=== PATIENT | male | born 1950 | race Caucasian/White ===

== ENCOUNTER → 2022-08-30 14:33 | Outpatient (BNVA) | payer MEDICARE, SELFPAY | PROVIDERS: PCP Internal Medicine; Visit Provider Nurse Practitioner Family | DX: R91.8 Other nonspecific abnormal finding of lung field (principal); J42 Unspecified chronic bronchitis | CPT/HCPCS: 99202 ==

== ENCOUNTER 2022-08-31 15:02 | Outpatient (REF) | payer MEDICARE, SELFPAY | END 2022-08-31 15:03 | disposition home or self-care (01) | LOC: HO.LNP 15:02 | PROVIDERS: Visit Provider Hospitalist | DX: J42 Unspecified chronic bronchitis (principal) | CPT/HCPCS: 87070; 87116; 87205; 87206 ==

== ENCOUNTER 2022-09-14 11:56 | Outpatient (REF) | payer MEDICARE, SELFPAY | END 2022-09-14 11:57 | disposition home or self-care (01) | LOC: HO.LNP 11:56 | PROVIDERS: Visit Provider Hospitalist | DX: J42 Unspecified chronic bronchitis (principal) | CPT/HCPCS: 87116; 87206 ==

== ENCOUNTER 2022-10-20 08:21 | Outpatient (REF) | payer MEDICARE, SELFPAY ==
--- NOTE | ~2022-10-20 | CT_ITS ---
EXAMINATION: CT CHEST WITHOUT CONTRAST CLINICAL INFORMATION: Follow-up right upper lung opacity COMPARISON: 08/16/2022; abdominal ultrasound 05/04/2022; abdominal MRI 10/03/2021 TECHNIQUE: Multidetector volumetric CT imaging of the chest was done. Axial MIP volume rendering provided. Sagittal and coronal reformatted images were obtained. This CT examination was performed using dose optimization techniques as appropriate, variously including the following: *Automated exposure control *Adjustment of mA and/or kV according to patient size (this includes techniques or standardized protocols for targeted exams where dose is matched to indication/reason for exam; i.e. extremities or head) *Use of iterative reconstruction technique DLP: 259 mGy-cm FINDINGS: ANALYTICAL TECHNICIAN: Poststernotomy changes. LUNGS: The lungs are well expanded. Previously described reticular and groundglass opacity in the right upper lobe has nearly completely cleared. There is mild subpleural reticular and groundglass opacity in the anterolateral apex measuring approximately 12 x 8 mm which is likely inflammatory. There is a stable 3 mm nodule in the superior segment of the right lower lobe (5/206). There is stable reticular chronic atelectasis or scarring at the left lung base. MEDIASTINUM: There is been previous sternotomy and aortic valve replacement. The ascending thoracic aorta is dilated to 4.3 cm, without interval change. Heart is not enlarged. Nonenlarged mediastinal lymph nodes remain stable. CORONARY ARTERY CALCIFICATION: Present. PLEURA: There is no pleural effusion. No pleural mass or thickening. AXILLA: No lymphadenopathy. UPPER ABDOMEN: No acute process. Lobulated appearance of the left adrenal gland appears stable without convincing evidence of a mass. Bilateral renal cysts for which no additional workup is required.. Status post cholecystectomy OSSEOUS STRUCTURES: No fracture or focal destructive lesion. Thoracic spondylosis. CT/CT chest wo IV con IMPRESSION: There is considerable improvement in reticular and groundglass infiltrate in the right upper lobe, consistent with a resolving inflammatory process. There is a small area of reticular and groundglass opacity and subcutaneous pleural right apex, likely inflammatory. Clinical correlation is recommended, with interval follow-up is indicated. Stable chronic atelectasis or scarring at the left lung base. Probably benign 3 mm nodule in the superior segment of the right lower lobe appears stable. Interval follow-up in 12 months could be considered as below. Per the 2017 revised Fleischner Society guidelines, no routine follow-up is necessarily required in low-risk patients, and consideration of 12 month follow-up CT is recommended for patients at high-risk for the development of pulmonary neoplasm.
== END 2022-10-20 08:22 | disposition home or self-care (01) ==
LOC: HO.CT 08:21
PROVIDERS: PCP Internal Medicine; Visit Provider Nurse Practitioner Family
DX: R91.8 Other nonspecific abnormal finding of lung field (principal)
CPT/HCPCS: 71250

== ENCOUNTER 2022-10-24 10:17 | Outpatient (AMB) | payer MEDICARE, SELFPAY ==
[2022-10-24 10:22] VITALS: BP 138/70; PULSE 50; O2SAT 97; BMI 33.5
--- NOTE | 2022-10-24 10:22 | A.OFFVIS_ITS ---
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 Cam Basurto), chronic sinusitis s/p sinus surgery 2012, s/p aortic valve replacement and aorta mesh graft placed 2014, receives annual echos under the care of [facility] cardiology. Referred by PCP initially for chronic bronchitis, as patient with persistent productive cough, unchanged over the past two months despite treatment, CXR negative. He was then sent for chest CT 08/16/22 at [facility] and revealed multiple pulmonary nodules as well as ground glass opacities. Full report below. Patient had continued symptoms, productive cough with thick yellow sputum and was treated with Augmentin, zpak and started on Trelegy this past Sunday. He also uses Flonase as well as saline rinses. He has had noticeable improvements in symptoms. He denies any chest tightness, wheezing or hemoptysis. At baseline patient is quite active and denies any dyspnea. Last PFT 2021, no restrictive or obstructive ventilatory defects. He denies any family history of lung cancer, father, smoker, had COPD.?? 10/24/2022 the patient is here for pulmonary follow-up visit. Overall the patient has been fairly anxious of his respiratory issues. He has been using Advair inhaler with good response. He did not respond well to Trelegy as well as other inhalers afterwards. She would like to stay on the Advair inhaler. Does not seem like the powder bothersome too much but I do believe that the Advair HFA will be a good option for him as able provide good the position of the medication and allows him to use a spacer. We did talk about is issues with chronic bronchitis. The patient is a good candidate for azithromycin 3 times a week in view of the chronic mucus production. The patient is agreeable to this. He just completed a course of doxycycline. In addition to this the patient can use a flutter valve to help him clear the mucus. I will request an Acapella valve from the [employer] to provide that he can use twice a day. He does not have a nebulizer at this point which is okay will consider adding a nebulizer any new future. The nebulizer will also provide additional chest physical therapy. Patient did have a CT scan of the chest that was personally by me. Appears that his nodular densities has significantly improved. He still has some hazy areas of ground-glass I inflammation. But otherwise the nodular densities have decreasing size. He still has small nodular densities present however. Will require additional followups in the future. Patient continues to receive IVIG by his his supervisor [employer]. His last level trough was 800 which is reassuring. Will continue the therapy at this point. He has been fully vaccinated. Will have him come back and 6-8 weeks with PFTs. [facility] Medical History (Updated 10/24/22 @ 22:52 by Valeriano Ruiz MD) Aortic aneurysm Benign neoplasm of pancreas Chronic bronchitis COPD (chronic obstructive pulmonary disease) Former smoker, stopped smoking in distant past History of thyroid cancer Hyperlipemia Hypertension Hypertensive chronic kidney disease Hypogammaglobulinemia Hypothyroidism, acquired Immune thrombocytopenic purpura HOYT (nonalcoholic steatohepatitis) Obesity SNHL (sensorineural hearing loss) Vitamin D deficiency Surgical History (Updated 09/01/22 @ 09:11 by Lisandra Lopez PA-C) History of aortic valve replacement (~2014) History of cholecystectomy (~2009) History of endovascular stent graft for abdominal aortic aneurysm (AAA) (~2014) History of sinus surgery (~2012) History of thyroidectomy, total (~2001) Social History (Updated 08/30/22 @ 15:08 by Charis Alcazar LPN) Patient Tobacco Use Status: Former Tobacco user Tobacco use type: Cigarette and Cigar Years Smoked: 7 Review of Systems Const Denies chills, Denies excessive sweating, Denies fever(s), Denies headache(s) and Denies night sweats Eyes Denies dry eyes, Denies irritation and Denies itchy eyes ENT Reports Normal hearing present, Denies headache(s), Denies nasal congestion and Denies sore throat Card Denies chest pain, Denies chest pain at rest, Denies chest pain with activity, Denies leg edema, Denies dyspnea, Denies dyspnea on exertion, Denies orthopnea and Denies paroxysmal nocturnal dyspnea Resp Denies excessive phlegm production, Denies pain on inspiration, Denies pain with cough, Denies dyspnea, Denies dyspnea on exertion, Denies stridor and Denies wheezing Musc Denies myalgias Neuro Reports Normal hearing present and Denies headache(s) Psych Reports anxiety Endo Denies excessive sweating Samuel/Lymph Denies lymphadenopathy Aller/Immun Denies itchy eyes, Denies seasonal rhinorrhea and Denies wheezing Physical Exam Vital Signs: Last Vital Signs Pulse 50 10/24/22 10:22 BP 138/70 10/24/22 10:22 Pulse Ox 97 10/24/22 10:22 Oxygen Delivery Method Room Air 10/24/22 10:22 BMI result Body Mass Index 33.5 Const General: cooperative, healthy appearing, comfortable, no acute distress, well developed and alert Nutritional Appearance: obese Orientation/consciousness: patient oriented x3 Limitations: no limitations HEENT Head: Yes normal to inspection, Yes normocephalic and Yes atraumatic Ears: hearing grossly normal bilaterally and external ears normal Eyes General: appearance normal, both eyes and all related structures Eyelids: Yes eyelids normal Sclerae: sclerae normal EOM: EOMs intact bilaterally Neck Neck: Yes normal visual inspection and Yes no lymphadenopathy Chest Chest palpation & inspection: normal inspection of the chest Resp Effort & Inspection: normal respiratory effort, able to speak in complete sentences, no audible wheezes, no cough, no stridor, not tachypneic, no tripod positioning and no use of accessory muscles Auscultation: diminished lung sounds Cardio Jugular venous distension: no JVD Rate: regular rate Rhythm: regular rhythm Skin Other: warm, dry General skin exam: no rashes or lesions noted Neuro General: patient oriented x3 Cranial nerves: Yes Normal hearing present Cognition (Neuro): normal cognition Gait exam (Neuro): Normal gait present Extrem General: Yes normal to inspection, Yes capillary refill normal, Yes no clubbing, cyanosis or edema and Yes no pedal edema Psych Appearance: grossly normal and well kempt Speech and movement: Normal speech and movement present and Clear speech present Affect: normal affect Attitude: cooperative Thought process: Normal thought process present Thought content: Normal thought content present Insight: Good insight present (Psych) Judgement: Good judgement present (Psych) Results Reviewed Results Reviewed: [address] [address] [address] Scan Report Signed Patient: Sage Singh MR#: [id number] : 1950 Acct:[id number] Age/Sex: 72 / M ADM Date: 10/20/22 Loc: [facility].CT Attending Dr: Claribel Ruth NP Ordering Physician: Claribel Ruth NP Date of Service: 10/20/22 Procedure(s): CT chest wo IV con Accession Number(s): [id number] cc: Claribel Ruth NP~ EXAMINATION: CT CHEST WITHOUT CONTRAST CLINICAL INFORMATION: Follow-up right upper lung opacity? COMPARISON: 08/16/2022; abdominal ultrasound 05/04/2022; abdominal MRI 10/03/2021 TECHNIQUE: Multidetector volumetric CT imaging of the chest was done. Axial MIP volume rendering provided. Sagittal and coronal reformatted images were obtained.? This CT examination was performed using dose optimization techniques as appropriate, variously including the following: *Automated exposure control *Adjustment of mA and/or kV according to patient size (this includes techniques or standardized protocols for targeted exams where dose is matched to indication/reason for exam; i.e. extremities or head) *Use of iterative reconstruction technique DLP: 259 mGy-cm FINDINGS: PANELBEATER: Poststernotomy changes. LUNGS: The lungs are well expanded. Previously described reticular and groundglass opacity in the right upper lobe has nearly completely cleared. There is mild subpleural reticular and groundglass opacity in the anterolateral apex measuring approximately 12 x 8 mm which is likely inflammatory. There is a stable 3 mm nodule in the superior segment of the right lower lobe (). There is stable reticular chronic atelectasis or scarring at the left lung base.? MEDIASTINUM: There is been previous sternotomy and aortic valve replacement. The ascending thoracic aorta is dilated to 4.3 cm, without interval change. Heart is not enlarged. Nonenlarged mediastinal lymph nodes remain stable.? CORONARY ARTERY CALCIFICATION: Present. PLEURA: There is no pleural effusion. No pleural mass or thickening.? AXILLA: No lymphadenopathy.? UPPER ABDOMEN: No acute process. Lobulated appearance of the left adrenal gland appears stable without convincing evidence of a mass. Bilateral renal cysts for which no additional workup is required.. Status post cholecystectomy? OSSEOUS STRUCTURES: No fracture or focal destructive lesion. Thoracic spondylosis.? CT/CT chest wo IV con IMPRESSION: There is considerable improvement in reticular and groundglass infiltrate in the right upper lobe, consistent with a resolving inflammatory process. ? There is a small area of reticular and groundglass opacity and subcutaneous pleural right apex, likely inflammatory. Clinical correlation is recommended, with interval follow-up is indicated. ? Stable chronic atelectasis or scarring at the left lung base. ? Probably benign 3 mm nodule in the superior segment of the right lower lobe appears stable. Interval follow-up in 12 months could be considered as below.? ? Per the 2017 revised Fleischner Society guidelines, no routine follow-up is necessarily required in low-risk patients, and consideration of 12 month follow-up CT is recommended for patients at high-risk for the development of pulmonary neoplasm. Dictated By: Indio Molina MD Signed By: <Electronically signed by Indio Molina MD in OV> 10/23/22 0932 DD/ 0900 TD/TT:? Outdoor Power Equipment Mechanic: Assessment & Plan Assessment & Plan (1) COPD (chronic obstructive pulmonary disease): Code(s): J44.9 - Chronic obstructive pulmonary disease, unspecified (2) Ground glass opacity present on imaging of lung: Code(s): R91.8 - Other nonspecific abnormal finding of lung field (3) Chronic bronchitis: Code(s): J42 - Unspecified chronic bronchitis (4) Hypogammaglobulinemia: Comment: (on IVIG -Dr. Cam Basurto) Code(s): D80.1 - Nonfamilial hypogammaglobulinemia Plan start Advair HFA with spacer Requesting Acapella valve from [facility] as needed consider nebulizer Start Azithromycin MWF, will need an EKG PFTs IVIG at [facility] F/U 6-8 weeks Orders: Orders PFT pulmonary function test Today J44.9 - Chronic obstructive pulmonary disease, unspecified Medications: New fluticasone propion-salmeterol 115-21 mcg/actuation (Advair HFA) 2 puffs inhalation Q12H 30 days 12 grams 11RF azithromycin Take 1 tablet on Sunday/Sunday/Sunday 250 mg PO 3XW 28 days 12 tabs 2RF K21.9 - Gastro-esophageal reflux disease without esophagitis Coding Level of Care Code Est Pt Level 5 (52338) Diagnoses COPD (chronic obstructive pulmonary disease) J44.9 Ground glass opacity present on imaging of lung R91.8 Chronic bronchitis J42 Hypogammaglobulinemia D80.1 Time Spent (min) 60
== END 2022-10-24 11:09 | disposition home or self-care (01) ==
PROVIDERS: PCP Internal Medicine; Visit Provider Hospitalist
DX: J44.9 Chronic obstructive pulmonary disease, unspecified (principal); R91.8 Other nonspecific abnormal finding of lung field; D80.1 Nonfamilial hypogammaglobulinemia
CPT/HCPCS: 99215

== ENCOUNTER → 2022-10-24 10:17 | Outpatient (BNVA) | payer MEDICARE, SELFPAY | PROVIDERS: PCP Internal Medicine; Visit Provider Hospitalist | DX: J44.9 Chronic obstructive pulmonary disease, unspecified (principal); R91.8 Other nonspecific abnormal finding of lung field; D80.1 Nonfamilial hypogammaglobulinemia | CPT/HCPCS: 99212 ==

== ENCOUNTER 2022-11-17 10:56 | Outpatient (REF) | payer MEDICARE, SELFPAY ==
--- NOTE | 2022-11-17 11:54 | PFT_ITS ---
FLOWS: 1. FEV1 119% of predicted at 3.67 L. 2. FVC 107% of predicted at 4.55 L. 3. FEV1 to FVC ratio of 0.81. 4. No bronchodilator response. LUNG VOLUMES: 1. Total lung capacity 101% of predicted at 7.11 L. 2. Residual volume of 97% of predicted at 2.48 L. 3. Slow vital capacity 103% of predicted at 4.63 L. 4. Expiratory reserve volume 43% at 0.54 L. 5. Diffusion capacity is normal. IMPRESSION: No obstructive or restrictive ventilatory defect. No bronchodilator response. Decreased expiratory reserve volume suggests extrathoracic restriction likely secondary to abdominal obesity. Roberto Carlos Wilson MD AP/MODL / [id number]
[2022-11-17 12:25] LABS: MANUAL DIFF FLAG NO
[2022-11-17 13:25] LABS: Basophils Absolute Auto 0.1 X10*3/uL (0.0-0.2); Basophils Percent Auto 1.1 % (0-2); Eosinophils Absolute Auto 0.1 X10*3/uL (0.0-0.4); Eosinophils Percent Auto 1.5 % (0-4); Hematocrit 44.4 % (42.0-52.0); Hemoglobin 14.3 g/dl (14.0-18.0); Imm Gran Abs Auto 0.03 X10*3/uL (0.00-0.03); Imm Gran Pct Auto 0.3 % (0.0-0.4); Lymphocytes Absolute Auto 1.7 X10*3/uL (1.2-4.9); Lymphocytes Percent Auto 18.5 % (20-40); Mean Corpuscular HGB Conc 32.2 g/dl (31.0-36.0); Mean Corpuscular Hemoglobin 28.6 pg (27.0-33.0); Mean Corpuscular Volume 88.8 fL (80.0-98.0); Mean Platelet Volume 9.8 fL (9.4-12.4); Monocytes Absolute Auto 0.8 X10*3/uL (0.1-1.2); Monocytes Percent Auto 9.1 % (2-11); Neutrophils Absolute Auto 6.3 x10*3/uL (2.0-8.3); Neutrophils Percent Auto 69.5 % (45-73); Platelet Count 325 X10*3/uL (160-400); Red Cell Distribution Width 14.4 % (11.0-16.0)
[2022-11-17 14:12] LABS: Anion Gap 14 (12-20); Blood Urea Nitrogen 18 mg/dL (9-16); Calcium 10.2 mg/dL (8.4-10.2); Carbon Dioxide 24 mmol/L (22-29); Chloride 107 mmol/L (96-108); Estimated Glomerular Filt Rate > 60; Glucose Random 93 mg/dL (60-115); Potassium 4.6 mmol/L (3.3-5.1); Sodium 140 mmol/L (135-145)
[2022-11-17 14:16] LABS: Erythrocyte Sedimentation Rate 10 MM/HR (0-15)
[2022-11-21 09:19] LABS: Anti Nuclear Antibody Screen NEGATIVE (NEGATIVE)
[2022-11-24 07:23] LABS: IgA <5 mg/dL (70-320); IgG 919 mg/dL (600-1540); IgM <5 mg/dL (50-300)
[2022-11-24 16:43] LABS: Asperg fumigatus Precip Abs NEGATIVE (NEGATIVE); Micropoly faeni Abs NEGATIVE (NEGATIVE); Pigeon serum Abs NEGATIVE (NEGATIVE); Saccharo pora viridis Abs NEGATIVE (NEGATIVE); Thermo candidus Abs NEGATIVE (NEGATIVE); Thermoa vulgaris #1 NEGATIVE (NEGATIVE)
== END 2022-11-17 10:57 | disposition home or self-care (01) ==
LOC: HO.RESP 10:56
PROVIDERS: PCP Internal Medicine; Visit Provider Hospitalist
DX: D80.1 Nonfamilial hypogammaglobulinemia (principal); J42 Unspecified chronic bronchitis; R91.8 Other nonspecific abnormal finding of lung field; T78.40XA Allergy, unspecified, initial encounter
CPT/HCPCS: 36415; 80048; 82784; 82785; 85025; 85652; 86003; 86038; 86331; 86606; 86609; 94010; 94727; 94729

== ENCOUNTER → 2022-11-17 11:54 | Outpatient (BNV) | payer MEDICARE, SELFPAY | PROVIDERS: PCP Internal Medicine; Visit Provider Internal Medicine Pulmonary Disease | DX: J44.9 Chronic obstructive pulmonary disease, unspecified (principal) | CPT/HCPCS: 94060; 94727; 94729 ==

== ENCOUNTER 2022-12-15 10:18 | Outpatient (AMB) | payer MEDICARE, SELFPAY ==
--- NOTE | 2022-12-15 10:33 | MHC.OFFVIS ---
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 Cam Basurto), chronic sinusitis s/p sinus surgery 2012, s/p aortic valve replacement and aorta mesh graft placed 2014, receives annual echos under the care of [facility] cardiology. Referred by PCP initially for chronic bronchitis, as patient with persistent productive cough, unchanged over the past two months despite treatment, CXR negative. He was then sent for chest CT 08/16/22 at [facility] and revealed multiple pulmonary nodules as well as ground glass opacities. Full report below. Patient had continued symptoms, productive cough with thick yellow sputum and was treated with Augmentin, zpak and started on Trelegy this past Sunday. He also uses Flonase as well as saline rinses. He has had noticeable improvements in symptoms. He denies any chest tightness, wheezing or hemoptysis. At baseline patient is quite active and denies any dyspnea. Last PFT 2021, no restrictive or obstructive ventilatory defects. He denies any family history of lung cancer, father, smoker, had COPD.?? 10/24/2022 the patient is here for pulmonary follow-up visit. Overall the patient has been fairly anxious of his respiratory issues. He has been using Advair inhaler with good response. He did not respond well to Trelegy as well as other inhalers afterwards. She would like to stay on the Advair inhaler. Does not seem like the powder bothersome too much but I do believe that the Advair HFA will be a good option for him as able provide good the position of the medication and allows him to use a spacer. We did talk about is issues with chronic bronchitis. The patient is a good candidate for azithromycin 3 times a week in view of the chronic mucus production. The patient is agreeable to this. He just completed a course of doxycycline. In addition to this the patient can use a flutter valve to help him clear the mucus. I will request an Acapella valve from the [employer] to provide that he can use twice a day. He does not have a nebulizer at this point which is okay will consider adding a nebulizer any new future. The nebulizer will also provide additional chest physical therapy. Patient did have a CT scan of the chest that was personally by me. Appears that his nodular densities has significantly improved. He still has some hazy areas of ground-glass I inflammation. But otherwise the nodular densities have decreasing size. He still has small nodular densities present however. Will require additional followups in the future. Patient continues to receive IVIG by his his tractor operator helper. His last level trough was 800 which is reassuring. Will continue the therapy at this point. He has been fully vaccinated. Will have him come back and 6-8 weeks with PFTs. 12/15/2022 the patient is here for pulmonary follow-up visit. Continues to have significant chest congestion. Moderate severity. The Advair inhaler does not seem to be as effective as the Wixela. He is going to go back to the Wixela at this time. The patient does have significant chest congestion. Will go ahead and provide with a nebulizer in order for him to use it twice a day with Xopenex. Also will request a Acapella valve from the [facility] in order for him to perform chest physical therapy and bronchopulmonary hygiene. Sputum culture once able. The patient will continue with the azithromycin for now. 3 times a week. Hopefully with the nebulizer therapy he notices improvement. We did review again his CT scan of the chest from September 2022 demonstrating areas of ground-glass opacities and also pulmonary nodules. If the patient continues to improve will follow-up with a CT scan in September of 2023. otherwise we can always consider reimaging at an earlier time if he does not make any improvements. 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 Hypogammaglobulinemia Vitamin D deficiency Obesity Hyperlipemia Hypertension Hypothyroidism, acquired History of thyroid cancer Chronic bronchitis Surgical History (Updated 09/01/22 @ 09:11 by Lisandra Lopez PA-C) History of sinus surgery (~2012) History of cholecystectomy (~2009) History of thyroidectomy, total (~2001) History of endovascular stent graft for abdominal aortic aneurysm (AAA) (~2014) History of aortic valve replacement (~2014) Social History (Updated 08/30/22 @ 15:08 by Charis Alcazar LPN) Patient Tobacco Use Status: Former Tobacco user Tobacco use type: Cigarette and Cigar Years Smoked: 7 Review of Systems Const Denies chills, Denies excessive sweating, Denies fever(s), Denies headache(s) and Denies night sweats Eyes Denies dry eyes, Denies irritation and Denies itchy eyes ENT Reports Normal hearing present, Denies headache(s), Denies nasal congestion and Denies sore throat Card Denies chest pain, Denies chest pain at rest, Denies chest pain with activity, Denies leg edema, Denies dyspnea, Denies dyspnea on exertion, Denies orthopnea and Denies paroxysmal nocturnal dyspnea Resp Denies excessive phlegm production, Denies pain on inspiration, Denies pain with cough, Denies dyspnea, Denies dyspnea on exertion, Denies stridor and Denies wheezing Musc Denies myalgias Neuro Reports Normal hearing present and Denies headache(s) Psych Reports anxiety Endo Denies excessive sweating Samuel/Lymph Denies lymphadenopathy Aller/Immun Denies itchy eyes, Denies seasonal rhinorrhea and Denies wheezing Physical Exam Vital Signs: Last Vital Signs Pulse 62 12/15/22 10:34 BP 128/72 12/15/22 10:34 Pulse Ox 97 12/15/22 10:34 Oxygen Delivery Method Room Air 12/15/22 10:34 BMI result Body Mass Index 33.2 Const General: cooperative, healthy appearing, comfortable, no acute distress, well developed and alert Nutritional Appearance: obese Orientation/consciousness: patient oriented x3 Limitations: no limitations HEENT Head: Yes normal to inspection, Yes normocephalic and Yes atraumatic Ears: hearing grossly normal bilaterally and external ears normal Eyes General: appearance normal, both eyes and all related structures Eyelids: Yes eyelids normal Sclerae: sclerae normal EOM: EOMs intact bilaterally Neck Neck: Yes normal visual inspection and Yes no lymphadenopathy Chest Chest palpation & inspection: normal inspection of the chest Resp Effort & Inspection: normal respiratory effort, able to speak in complete sentences, no audible wheezes, no cough, no stridor, not tachypneic, no tripod positioning and no use of accessory muscles Auscultation: diminished lung sounds Cardio Jugular venous distension: no JVD Rate: regular rate Rhythm: regular rhythm Skin Other: warm, dry General skin exam: no rashes or lesions noted Neuro General: patient oriented x3 Cranial nerves: Yes Normal hearing present Cognition (Neuro): normal cognition Gait exam (Neuro): Normal gait present Extrem General: Yes normal to inspection, Yes capillary refill normal, Yes no clubbing, cyanosis or edema and Yes no pedal edema Psych Appearance: grossly normal and well kempt Speech and movement: Normal speech and movement present and Clear speech present Affect: normal affect Attitude: cooperative Thought process: Normal thought process present Thought content: Normal thought content present Insight: Good insight present (Psych) Judgement: Good judgement present (Psych) Assessment & Plan Assessment & Plan (1) COPD (chronic obstructive pulmonary disease): Code(s): J44.9 - Chronic obstructive pulmonary disease, unspecified Qualifiers: COPD type: chronic bronchitis Chronic bronchitis type: mixed simple and mucopurulent Qualified Code(s): J41.8 - Mixed simple and mucopurulent chronic bronchitis (2) Ground glass opacity present on imaging of lung: Code(s): R91.8 - Other nonspecific abnormal finding of lung field (3) Chronic bronchitis: Code(s): J42 - Unspecified chronic bronchitis Qualifiers: Chronic bronchitis type: mixed simple and mucopurulent Qualified Code(s): J41.8 - Mixed simple and mucopurulent chronic bronchitis (4) Hypogammaglobulinemia: Comment: (on IVIG -Dr. Cam Basurto) Code(s): D80.1 - Nonfamilial hypogammaglobulinemia Plan hold Advair HFA with spacer restart Wixela, consider higher dose Requesting Acapella valve from [facility] as needed start nebulizer BID with xopenex restart Azithromycin MWF, will need an EKG barium swallow sputum cx CT chest 10/19 IVIG at [facility] F/U 6-8 weeks Orders: Orders [place] barium swallow 12/15/22 K21.9 - Gastro-esophageal reflux disease without esophagitis Sputum Cult + Gram stain 12/15/22 J44.9 - Chronic obstructive pulmonary disease, unspecified Medications: New levalbuterol HCl 1.25 mg (3 mL) inhalation BID 30 days 180 mL 0RF J44.9 - Chronic obstructive pulmonary disease, unspecified Coding Level of Care Code Tele Est Pt Level 4 (99263) Diagnoses Mixed simple and mucopurulent chronic bronchitis J41.8 COPD type: chronic bronchitis Chronic bronchitis type: mixed simple and mucopurulent Ground glass opacity present on imaging of lung R91.8 Mixed simple and mucopurulent chronic bronchitis J41.8 Chronic bronchitis type: mixed simple and mucopurulent Hypogammaglobulinemia D80.1 Time Spent (min) 17
[2022-12-15 10:34] VITALS: BP 128/72; PULSE 62; O2SAT 97; BMI 33.2
== END 2022-12-15 11:16 | disposition home or self-care (01) ==
PROVIDERS: PCP Internal Medicine; Visit Provider Hospitalist
DX: J41.8 Mixed simple and mucopurulent chronic bronchitis (principal); D80.1 Nonfamilial hypogammaglobulinemia; R91.8 Other nonspecific abnormal finding of lung field
CPT/HCPCS: 99214

== ENCOUNTER → 2022-12-15 10:18 | Outpatient (BNVA) | payer MEDICARE, SELFPAY | PROVIDERS: PCP Internal Medicine; Visit Provider Hospitalist | DX: J41.8 Mixed simple and mucopurulent chronic bronchitis (principal); R91.8 Other nonspecific abnormal finding of lung field; D80.1 Nonfamilial hypogammaglobulinemia; Z87.891 Personal history of nicotine dependence | CPT/HCPCS: 99212 ==

== ENCOUNTER 2022-12-18 11:09 | Outpatient (REF) | payer MEDICARE, SELFPAY | END 2022-12-18 11:10 | disposition home or self-care (01) | LOC: HO.LNP 11:09 | PROVIDERS: Visit Provider Hospitalist | DX: J44.9 Chronic obstructive pulmonary disease, unspecified (principal) | CPT/HCPCS: 87070; 87077; 87185; 87205 ==

== ENCOUNTER → 2023-03-08 12:03 | Outpatient (REF) | payer BC, SELFPAY ==
--- NOTE | 2023-03-08 12:11 | ECG_ITS ---
Test Reason : j41.8 Blood Pressure : / mmHG Vent. Rate : 050 BPM Atrial Rate : 050 BPM P-R Int : 234 ms QRS Dur : 114 ms QT Int : 422 ms P-R-T Axes : 003 -37 027 degrees QTc Int : 384 ms Sinus bradycardia with sinus arrhythmia with 1st degree A-V block Possible Left atrial enlargement Left axis deviation Left ventricular hypertrophy ( R in aVL , Murray product , Romhilt-High ) Abnormal ECG No previous ECGs available Referred By: Valeriano Ruiz Electronically Signed By:CARY CLIFFORD MD
== END ==
LOC: HO.CARD 12:03
PROVIDERS: PCP Internal Medicine; Visit Provider Hospitalist
DX: J41.8 Mixed simple and mucopurulent chronic bronchitis (principal); K21.9 Gastro-esophageal reflux disease without esophagitis
CPT/HCPCS: 93005

== ENCOUNTER → 2023-03-08 12:11 | Outpatient (BNV) | payer BC, SELFPAY | PROVIDERS: PCP Internal Medicine; Visit Provider Internal Medicine Cardiovascular Disease | DX: I44.0 Atrioventricular block, first degree (principal); R94.31 Abnormal electrocardiogram [ECG] [EKG] | CPT/HCPCS: 93010 ==

== ENCOUNTER 2023-04-18 09:42 | Outpatient (AMB) | payer BC, SELFPAY ==
[2023-04-18 09:50] VITALS: BP 128/70; PULSE 55; O2SAT 98; BMI 33.2
--- NOTE | 2023-04-18 09:50 | MHC.OFFVIS ---
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 Cam Basurto), chronic sinusitis s/p sinus surgery 2012, s/p aortic valve replacement and aorta mesh graft placed 2014, receives annual echos under the care of [facility] cardiology. Referred by PCP initially for chronic bronchitis, as patient with persistent productive cough, unchanged over the past two months despite treatment, CXR negative. He was then sent for chest CT 08/16/22 at [facility] and revealed multiple pulmonary nodules as well as ground glass opacities. Full report below. Patient had continued symptoms, productive cough with thick yellow sputum and was treated with Augmentin, zpak and started on Trelegy this past Sunday. He also uses Flonase as well as saline rinses. He has had noticeable improvements in symptoms. He denies any chest tightness, wheezing or hemoptysis. At baseline patient is quite active and denies any dyspnea. Last PFT 2021, no restrictive or obstructive ventilatory defects. He denies any family history of lung cancer, father, smoker, had COPD.?? 10/24/2022 the patient is here for pulmonary follow-up visit. Overall the patient has been fairly anxious of his respiratory issues. He has been using Advair inhaler with good response. He did not respond well to Trelegy as well as other inhalers afterwards. She would like to stay on the Advair inhaler. Does not seem like the powder bothersome too much but I do believe that the Advair HFA will be a good option for him as able provide good the position of the medication and allows him to use a spacer. We did talk about is issues with chronic bronchitis. The patient is a good candidate for azithromycin 3 times a week in view of the chronic mucus production. The patient is agreeable to this. He just completed a course of doxycycline. In addition to this the patient can use a flutter valve to help him clear the mucus. I will request an Acapella valve from the [facility] to provide that he can use twice a day. He does not have a nebulizer at this point which is okay will consider adding a nebulizer any new future. The nebulizer will also provide additional chest physical therapy. Patient did have a CT scan of the chest that was personally by me. Appears that his nodular densities has significantly improved. He still has some hazy areas of ground-glass I inflammation. But otherwise the nodular densities have decreasing size. He still has small nodular densities present however. Will require additional followups in the future. Patient continues to receive IVIG by his his news library director. His last level trough was 800 which is reassuring. Will continue the therapy at this point. He has been fully vaccinated. Will have him come back and 6-8 weeks with PFTs. 12/15/2022 the patient is here for pulmonary follow-up visit. Continues to have significant chest congestion. Moderate severity. The Advair inhaler does not seem to be as effective as the Wixela. He is going to go back to the Wixela at this time. The patient does have significant chest congestion. Will go ahead and provide with a nebulizer in order for him to use it twice a day with Xopenex. Also will request a Acapella valve from the [employer] in order for him to perform chest physical therapy and bronchopulmonary hygiene. Sputum culture once able. The patient will continue with the azithromycin for now. 3 times a week. Hopefully with the nebulizer therapy he notices improvement. We did review again his CT scan of the chest from September 2022 demonstrating areas of ground-glass opacities and also pulmonary nodules. If the patient continues to improve will follow-up with a CT scan in September of 2023. otherwise we can always consider reimaging at an earlier time if he does not make any improvements. 04/18/2023 The patient is here for a pulmonary follow up visit. He is doing better. Still has acongested cough, moderate in severity. He was able to produce a sample and sent for culture. Still on the IgG therapy, although IgA deficiency. Always a concern about severe allergic reactions. He does get the IVIG through [facility]. He did f/u with immunology. Bloodwork demonstrating minimal B cell activity. He will undergo genetic testing as per the patient. He continues to have significant nasal congestions and has continue the Afrin. He understands that it is not good for im to use it regularly due to the rebound nasal congestion. He will try to decrease the amount and tria ipratropium. He did have a CT chest back in 2022 with subcentemeter pulmonary nodules. We will follow up in the summer after his repeat CT chest. 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 Hypogammaglobulinemia Vitamin D deficiency Obesity Hyperlipemia Hypertension Hypothyroidism, acquired History of thyroid cancer Chronic bronchitis Surgical History (Updated 09/01/22 @ 09:11 by Lisandra Lpoez PA-C) History of sinus surgery (~2012) History of cholecystectomy (~2009) History of thyroidectomy, total (~2001) History of endovascular stent graft for abdominal aortic aneurysm (AAA) (~2014) History of aortic valve replacement (~2014) Social History (Updated 08/30/22 @ 15:08 by Charis Alcazar LPN) Patient Tobacco Use Status: Former Tobacco user Tobacco use type: Cigarette and Cigar Years Smoked: 7 Review of Systems Const Denies chills, Denies excessive sweating, Denies fever(s), Denies headache(s) and Denies night sweats Eyes Denies dry eyes, Denies irritation and Denies itchy eyes ENT Reports Normal hearing present, Denies headache(s), Denies nasal congestion and Denies sore throat Card Denies chest pain, Denies chest pain at rest, Denies chest pain with activity, Denies leg edema, Denies dyspnea, Denies orthopnea and Denies paroxysmal nocturnal dyspnea Resp Reports change in phlegm color, Reports chest congestion, Reports cough, Denies pain on inspiration, Denies pain with cough, Denies dyspnea, Denies stridor and Denies wheezing Musc Denies myalgias Neuro Reports Normal hearing present and Denies headache(s) Psych Reports anxiety Endo Denies excessive sweating Samuel/Lymph Denies lymphadenopathy Aller/Immun Denies itchy eyes, Denies seasonal rhinorrhea and Denies wheezing Physical Exam Vital Signs: Last Vital Signs Pulse 55 04/18/23 09:50 BP 128/70 04/18/23 09:50 Pulse Ox 98 04/18/23 09:50 Oxygen Delivery Method Room Air 04/18/23 09:50 BMI result Body Mass Index 33.2 Const General: cooperative, healthy appearing, comfortable, no acute distress, well developed and alert Nutritional Appearance: obese Orientation/consciousness: patient oriented x3 Limitations: no limitations HEENT Head: Yes normal to inspection, Yes normocephalic and Yes atraumatic Ears: hearing grossly normal bilaterally and external ears normal Eyes General: appearance normal, both eyes and all related structures Eyelids: Yes eyelids normal Sclerae: sclerae normal EOM: EOMs intact bilaterally Neck Neck: Yes normal visual inspection and Yes no lymphadenopathy Chest Chest palpation & inspection: normal inspection of the chest Resp Effort & Inspection: normal respiratory effort, able to speak in complete sentences, no audible wheezes, no cough, no stridor, not tachypneic, no tripod positioning and no use of accessory muscles Auscultation: diminished lung sounds Cardio Jugular venous distension: no JVD Rate: regular rate Rhythm: regular rhythm Skin Other: warm, dry General skin exam: no rashes or lesions noted Neuro General: patient oriented x3 Cranial nerves: Yes Normal hearing present Cognition (Neuro): normal cognition Gait exam (Neuro): Normal gait present Extrem General: Yes normal to inspection, Yes capillary refill normal, Yes no clubbing, cyanosis or edema and Yes no pedal edema Psych Appearance: grossly normal and well kempt Speech and movement: Normal speech and movement present and Clear speech present Affect: normal affect Attitude: cooperative Thought process: Normal thought process present Thought content: Normal thought content present Insight: Good insight present (Psych) Judgement: Good judgement present (Psych) Assessment & Plan Assessment & Plan (1) COPD (chronic obstructive pulmonary disease): Code(s): J44.9 - Chronic obstructive pulmonary disease, unspecified Qualifiers: COPD type: chronic bronchitis Chronic bronchitis type: mixed simple and mucopurulent Qualified Code(s): J41.8 - Mixed simple and mucopurulent chronic bronchitis (2) Ground glass opacity present on imaging of lung: Code(s): R91.8 - Other nonspecific abnormal finding of lung field (3) Chronic bronchitis: Code(s): J42 - Unspecified chronic bronchitis Qualifiers: Chronic bronchitis type: mixed simple and mucopurulent Qualified Code(s): J41.8 - Mixed simple and mucopurulent chronic bronchitis (4) Hypogammaglobulinemia: Comment: (on IVIG -Dr. Cam Basurto) Code(s): D80.1 - Nonfamilial hypogammaglobulinemia (5) Multiple pulmonary nodules: Code(s): R91.8 - Other nonspecific abnormal finding of lung field (6) IgM deficiency: Code(s): D80.4 - Selective deficiency of immunoglobulin M [IgM] (7) IgA deficiency: Code(s): D80.2 - Selective deficiency of immunoglobulin A [IgA] Plan continue Wixela, consider higher dose Acapella valve from [facility] as needed nebulizer BID with xopenex conitnue Azithromycin MWF, EKG ok start ipratropium nasal spray Needs to cut down and stop the Afrin sputum cx sent CT chest 09/18 IVIG at [facility] F/U August 2023 Orders: Orders CT chest wo IV con 08/30/23 R91.8 - Other nonspecific abnormal finding of lung field, Z85.850 - Personal history of malignant neoplasm of thyroid Sputum Cult + Gram stain Today D80.1 - Nonfamilial hypogammaglobulinemia Medications: New ipratropium bromide administer into each nostril 2 sprays intranasal TID PRN 15 mL 6RF allergy symptoms Changed From azithromycin 250 mg PO 3XW 12 tabs 0RF K21.9 - Gastro-esophageal reflux disease without esophagitis To azithromycin Sunday, Sunday, Sunday 250 mg PO 3XW 12 tabs 11RF K21.9 - Gastro-esophageal reflux disease without esophagitis Coding Level of Care Code Est Pt Level 4 (58649) Diagnoses Mixed simple and mucopurulent chronic bronchitis J41.8 COPD type: chronic bronchitis Chronic bronchitis type: mixed simple and mucopurulent Ground glass opacity present on imaging of lung R91.8 Mixed simple and mucopurulent chronic bronchitis J41.8 Chronic bronchitis type: mixed simple and mucopurulent Hypogammaglobulinemia D80.1 Multiple pulmonary nodules R91.8 IgM deficiency D80.4 IgA deficiency D80.2 Time Spent (min) 18
== END 2023-04-18 10:20 | disposition home or self-care (01) ==
PROVIDERS: PCP Internal Medicine; Visit Provider Hospitalist
DX: J41.8 Mixed simple and mucopurulent chronic bronchitis (principal); R91.8 Other nonspecific abnormal finding of lung field; D80.1 Nonfamilial hypogammaglobulinemia; D80.4 Selective deficiency of immunoglobulin M [IgM]; D80.2 Selective deficiency of immunoglobulin A [IgA]
CPT/HCPCS: 99214

== ENCOUNTER 2023-04-18 09:42 | Outpatient (REF) | payer BC, SELFPAY | END 2023-04-18 09:43 | disposition home or self-care (01) | LOC: HO.LNP 09:42 | PROVIDERS: PCP Internal Medicine; Visit Provider Hospitalist | DX: J41.8 Mixed simple and mucopurulent chronic bronchitis (principal); R91.8 Other nonspecific abnormal finding of lung field; D80.1 Nonfamilial hypogammaglobulinemia; D80.2 Selective deficiency of immunoglobulin A [IgA] | CPT/HCPCS: 87070; 87077; 87185; 87205 ==

== ENCOUNTER 2023-08-20 09:49 | Outpatient (REF) | payer BC, SELFPAY ==
--- NOTE | ~2023-08-20 | CT_ITS ---
EXAMINATION: CT CHEST WITHOUT CONTRAST CLINICAL INFORMATION: Multiple pulmonary nodules, ground-glass opacity is present on imaging of lungs, history of thyroid cancer. COMPARISON: CT chest 10/20/2022: Previously described reticular and ground-glass opacity in the right upper lobe, has nearly completely cleared. There is mild subpleural reticular and ground-glass opacity in the anterolateral apex measuring approximately 12 x 8 mm, which is likely inflammatory. TECHNIQUE: Multidetector volumetric CT imaging of the chest was done. Axial MIP volume rendering provided. Sagittal and coronal reformatted images were obtained. This CT examination was performed using dose optimization techniques as appropriate, variously including the following: *Automated exposure control *Adjustment of mA and/or kV according to patient size (this includes techniques or standardized protocols for targeted exams where dose is matched to indication/reason for exam; i.e. extremities or head) *Use of iterative reconstruction technique DLP: 256 mGy-cm. FINDINGS: LUNGS: Previously seen subpleural reticular and ground-glass opacity in the anterolateral right apex (prior 5:99) has resolved. There is a new 1 cm ground-glass opacity seen in the right upper lobe (5:163), likely inflammatory. Scattered calcified granulomas are present. No concerning solid lung nodule is seen. MEDIASTINUM: Patient is status post median sternotomy. An aortic valvular prosthesis is present. Heart size is normal. CORONARY ARTERY CALCIFICATION: Moderate. PLEURA: There is no pleural effusion. No pleural mass or thickening. AXILLA: No lymphadenopathy. UPPER ABDOMEN: Status post cholecystectomy. Multiple benign right-sided Bosniak class I renal cysts are noted, which require no additional imaging or follow-up. No solid renal masses are seen. OSSEOUS STRUCTURES: Degenerative changes are present in the spine. No bony destructive lesions. CT/CT chest wo IV con IMPRESSION: 1. Previously seen subpleural reticular and ground-glass opacity in the right apex have resolved. 2. There is a new 1 cm ground-glass opacity in the right upper lobe, likely inflammatory. 3. Incidental note is made of an aortic valvular prosthesis, cholecystectomy and benign Bosniak class I renal cysts, which require no additional imaging or follow-up. According to the UPDATED 2017 Fleischner Society recommendations, the advised follow-up imaging for a single pure ground-glass nodule measuring between 6 and 10 mm is: CT at 6 to 12 months to confirm persistence, then CT every 2 years until 5 years if it persists.
== END 2023-08-20 09:50 | disposition home or self-care (01) ==
LOC: HO.CT 09:49
PROVIDERS: PCP Internal Medicine; Visit Provider Hospitalist
DX: R91.8 Other nonspecific abnormal finding of lung field (principal); Z85.850 Personal history of malignant neoplasm of thyroid
CPT/HCPCS: 71250

== ENCOUNTER 2023-09-28 09:47 | Outpatient (AMB) | payer BC, SELFPAY ==
[2023-09-28 09:55] VITALS: PULSE 64; O2SAT 97; BMI 31.3
--- NOTE | 2023-09-28 09:55 | MHC.OFFVIS ---
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 Cam Basurto), chronic sinusitis s/p sinus surgery 2012, s/p aortic valve replacement and aorta mesh graft placed 2014, receives annual echos under the care of [facility] cardiology. Referred by PCP initially for chronic bronchitis, as patient with persistent productive cough, unchanged over the past two months despite treatment, CXR negative. He was then sent for chest CT 08/16/22 at [facility] and revealed multiple pulmonary nodules as well as ground glass opacities. Full report below. Patient had continued symptoms, productive cough with thick yellow sputum and was treated with Augmentin, zpak and started on Trelegy this past Sunday. He also uses Flonase as well as saline rinses. He has had noticeable improvements in symptoms. He denies any chest tightness, wheezing or hemoptysis. At baseline patient is quite active and denies any dyspnea. Last PFT 2021, no restrictive or obstructive ventilatory defects. He denies any family history of lung cancer, father, smoker, had COPD.?? 10/24/2022 the patient is here for pulmonary follow-up visit. Overall the patient has been fairly anxious of his respiratory issues. He has been using Advair inhaler with good response. He did not respond well to Trelegy as well as other inhalers afterwards. She would like to stay on the Advair inhaler. Does not seem like the powder bothersome too much but I do believe that the Advair HFA will be a good option for him as able provide good the position of the medication and allows him to use a spacer. We did talk about is issues with chronic bronchitis. The patient is a good candidate for azithromycin 3 times a week in view of the chronic mucus production. The patient is agreeable to this. He just completed a course of doxycycline. In addition to this the patient can use a flutter valve to help him clear the mucus. I will request an Acapella valve from the [employer] to provide that he can use twice a day. He does not have a nebulizer at this point which is okay will consider adding a nebulizer any new future. The nebulizer will also provide additional chest physical therapy. Patient did have a CT scan of the chest that was personally by me. Appears that his nodular densities has significantly improved. He still has some hazy areas of ground-glass I inflammation. But otherwise the nodular densities have decreasing size. He still has small nodular densities present however. Will require additional followups in the future. 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 His last level trough was 800 which is reassuring. Will continue the therapy at this point. He has been fully vaccinated. Will have him come back and 6-8 weeks with PFTs. 12/15/2022 the patient is here for pulmonary follow-up visit. Continues to have significant chest congestion. Moderate severity. The Advair inhaler does not seem to be as effective as the Wixela. He is going to go back to the Wixela at this time. The patient does have significant chest congestion. Will go ahead and provide with a nebulizer in order for him to use it twice a day with Xopenex. Also will request a Acapella valve from the [employer] in order for him to perform chest physical therapy and bronchopulmonary hygiene. Sputum culture once able. The patient will continue with the azithromycin for now. 3 times a week. Hopefully with the nebulizer therapy he notices improvement. We did review again his CT scan of the chest from September 2022 demonstrating areas of ground-glass opacities and also pulmonary nodules. If the patient continues to improve will follow-up with a CT scan in September of 2023. otherwise we can always consider reimaging at an earlier time if he does not make any improvements. 04/18/2023 The patient is here for a pulmonary follow up visit. He is doing better. Still has acongested cough, moderate in severity. He was able to produce a sample and sent for culture. Still on the IgG therapy, although IgA deficiency. Always a concern about severe allergic reactions. He does get the IVIG through [facility]. He did f/u with immunology. Bloodwork demonstrating minimal B cell activity. He will undergo genetic testing as per the patient. He continues to have significant nasal congestions and has continue the Afrin. He understands that it is not good for im to use it regularly due to the rebound nasal congestion. He will try to decrease the amount and tria ipratropium. He did have a CT chest back in 2022 with subcentemeter pulmonary nodules. We will follow up in the summer after his repeat CT chest. 09/28/2023 the patient is here for a pulmonary follow-up visit. Overall he is feeling a lot better. His cough is significantly improved. He was able to stop a lot of his medications because he feels better. The patient did have a resistant form of Haemophilus influenzae. He responded well to the quinolones. In the meantime he should continue with chest physical therapy to minimize mucus burden specially since there is a possibility that the organism a return. He has been able to be off the inhalers. Unfortunately still struggling with the Afrin. He is trying to decrease the amount of the medication. the inhalers that we all the nasal sprays that we prescribed a not help. He is going to continue working with ENT in order to see about weaning completely. The patient did have a CT scan of the chest which we personally reviewed. The ground-glass density area has improved which is reassuring. Although he does have his 1 cm ground-glass nodular density in the right upper lobe now that will need follow-up. No solid components within it. Although may be inflammatory still a chance that this could be a smoldering precancerous lesion. Therefore will plan to repeat a CT scan in a year's time. If the patient continues to do well follow-up after the CT scan. If he develops any worsening symptoms he will call for an earlier assessment. 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 Hypogammaglobulinemia Vitamin D deficiency Obesity Hyperlipemia Hypertension Hypothyroidism, acquired History of thyroid cancer Chronic bronchitis Surgical History (Updated 09/01/22 @ 09:11 by Lisandra Lopez PA-C) History of sinus surgery (~2012) History of cholecystectomy (~2009) History of thyroidectomy, total (~2001) History of endovascular stent graft for abdominal aortic aneurysm (AAA) (~2014) History of aortic valve replacement (~2014) Social History (Updated 08/30/22 @ 15:08 by Charis Alcazar LPN) Patient Tobacco Use Status: Former Tobacco user Tobacco use type: Cigarette and Cigar Years Smoked: 7 Review of Systems Const Denies chills, Denies excessive sweating, Denies fever(s), Denies headache(s) and Denies night sweats Eyes Denies dry eyes, Denies irritation and Denies itchy eyes ENT Reports Normal hearing present, Denies headache(s), Denies nasal congestion and Denies sore throat Card Denies chest pain, Denies chest pain at rest, Denies chest pain with activity, Denies leg edema, Denies dyspnea, Denies orthopnea and Denies paroxysmal nocturnal dyspnea Resp Denies change in phlegm color, Denies chest congestion, Reports cough, Denies pain on inspiration, Denies pain with cough, Denies dyspnea, Denies stridor and Denies wheezing Musc Denies myalgias Neuro Reports Normal hearing present and Denies headache(s) Psych Reports anxiety Endo Denies excessive sweating Samuel/Lymph Denies lymphadenopathy Aller/Immun Denies itchy eyes, Denies seasonal rhinorrhea and Denies wheezing Physical Exam Vital Signs: Last Vital Signs Pulse 64 09/28/23 09:55 Pulse Ox 97 09/28/23 09:55 Oxygen Delivery Method Room Air 09/28/23 09:55 BMI result Body Mass Index 31.3 Const General: cooperative, healthy appearing, comfortable, no acute distress, well developed and alert Nutritional Appearance: obese Orientation/consciousness: patient oriented x3 Limitations: no limitations HEENT Head: Yes normal to inspection, Yes normocephalic and Yes atraumatic Ears: hearing grossly normal bilaterally and external ears normal Eyes General: appearance normal, both eyes and all related structures Eyelids: Yes eyelids normal Sclerae: sclerae normal EOM: EOMs intact bilaterally Neck Neck: Yes normal visual inspection and Yes no lymphadenopathy Chest Chest palpation & inspection: normal inspection of the chest Resp Effort & Inspection: normal respiratory effort, able to speak in complete sentences, no audible wheezes, no cough, no stridor, not tachypneic, no tripod positioning and no use of accessory muscles Auscultation: clear to auscultation bilaterally Cardio Jugular venous distension: no JVD Rate: regular rate Rhythm: regular rhythm Skin Other: warm, dry General skin exam: no rashes or lesions noted Neuro General: patient oriented x3 Cranial nerves: Yes Normal hearing present Cognition (Neuro): normal cognition Gait exam (Neuro): Normal gait present Extrem General: Yes normal to inspection, Yes capillary refill normal, Yes no clubbing, cyanosis or edema and Yes no pedal edema Psych Appearance: grossly normal and well kempt Speech and movement: Normal speech and movement present and Clear speech present Affect: normal affect Attitude: cooperative Thought process: Normal thought process present Thought content: Normal thought content present Insight: Good insight present (Psych) Judgement: Good judgement present (Psych) Results Reviewed Results Reviewed: [address] [address] [address] Scan Report Signed Patient: Sage Singh MR#: [id number] : 1950 Acct:[id number] Age/Sex: 73 / M ADM Date: 08/20/23 Loc: HO.CT Attending Dr: Valeriano Ruiz MD Ordering Physician: Valeriano Ruiz MD Date of Service: 08/20/23 Procedure(s): CT chest wo IV con Accession Number(s): [id number] cc: Valeriano Ruiz MD; Chilo Orellana MD~ EXAMINATION: CT CHEST WITHOUT CONTRAST CLINICAL INFORMATION: Multiple pulmonary nodules, ground-glass opacity is present on imaging of lungs, history of thyroid cancer. COMPARISON: CT chest 10/20/2022: Previously described reticular and ground-glass opacity in the right upper lobe, has nearly completely cleared. There is mild subpleural reticular and ground-glass opacity in the anterolateral apex measuring approximately 12 x 8 mm, which is likely inflammatory. TECHNIQUE: Multidetector volumetric CT imaging of the chest was done. Axial MIP volume rendering provided. Sagittal and coronal reformatted images were obtained. This CT examination was performed using dose optimization techniques as appropriate, variously including the following: *Automated exposure control *Adjustment of mA and/or kV according to patient size (this includes techniques or standardized protocols for targeted exams where dose is matched to indication/reason for exam; i.e. extremities or head) *Use of iterative reconstruction technique DLP: 256 mGy-cm. FINDINGS: LUNGS: Previously seen subpleural reticular and ground-glass opacity in the anterolateral right apex (prior 5:99) has resolved. There is a new 1 cm ground-glass opacity seen in the right upper lobe (5:163), likely inflammatory. Scattered calcified granulomas are present. No concerning solid lung nodule is seen. MEDIASTINUM: Patient is status post median sternotomy. An aortic valvular prosthesis is present. Heart size is normal. CORONARY ARTERY CALCIFICATION: Moderate. PLEURA: There is no pleural effusion. No pleural mass or thickening. AXILLA: No lymphadenopathy. UPPER ABDOMEN: Status post cholecystectomy. Multiple benign right-sided Bosniak class I renal cysts are noted, which require no additional imaging or follow-up. No solid renal masses are seen. OSSEOUS STRUCTURES: Degenerative changes are present in the spine. No bony destructive lesions. CT/CT chest wo IV con IMPRESSION: 1. Previously seen subpleural reticular and ground-glass opacity in the right apex have resolved. 2. There is a new 1 cm ground-glass opacity in the right upper lobe, likely inflammatory. 3. Incidental note is made of an aortic valvular prosthesis, cholecystectomy and benign Bosniak class I renal cysts, which require no additional imaging or follow-up. According to the UPDATED 2017 Fleischner Society recommendations, the advised follow-up imaging for a single pure ground-glass nodule measuring between 6 and 10 mm is: CT at 6 to 12 months to confirm persistence, then CT every 2 years until 5 years if it persists. Dictated By: Kendrick Lafleur MD Signed By: <Electronically signed by Kendrick Lafleur MD in OV> 09/27/23 1637 DD/ 1010 TD/TT: Eap Specialist: SS Assessment & Plan Assessment & Plan (1) COPD (chronic obstructive pulmonary disease): Code(s): J44.9 - Chronic obstructive pulmonary disease, unspecified Category: Medical Qualifiers: COPD type: chronic bronchitis Chronic bronchitis type: mixed simple and mucopurulent Qualified Code(s): J41.8 - Mixed simple and mucopurulent chronic bronchitis (2) Ground glass opacity present on imaging of lung: Code(s): R91.8 - Other nonspecific abnormal finding of lung field Category: Medical (3) Chronic bronchitis: Code(s): J42 - Unspecified chronic bronchitis Category: Medical Qualifiers: Chronic bronchitis type: mixed simple and mucopurulent Qualified Code(s): J41.8 - Mixed simple and mucopurulent chronic bronchitis (4) Hypogammaglobulinemia: Comment: (on IVIG -Dr. Cam Basurto) Code(s): D80.1 - Nonfamilial hypogammaglobulinemia Category: Medical (5) Multiple pulmonary nodules: Code(s): R91.8 - Other nonspecific abnormal finding of lung field Category: Medical (6) IgM deficiency: Code(s): D80.4 - Selective deficiency of immunoglobulin M [IgM] Category: Medical (7) IgA deficiency: Code(s): D80.2 - Selective deficiency of immunoglobulin A [IgA] Category: Medical Plan holding Wixela, consider higher dose Acapella valve from DME DON as needed nebulizer BID with xopenex stop Azithromycin MWF, EKG ok stppedipratropium nasal spray Needs to cut down and stop the Afrin sputum cx if worsens, reponds well to Levaquin CT chest 09/19 IVIG at [facility] F/U August 2024 Orders: Orders CT chest wo IV con 1 Year R91.8 - Other nonspecific abnormal finding of lung field Coding Level of Care Code Tele Est Pt Level 4 (09181) Complex EM visit Add On G2211 Diagnoses Mixed simple and mucopurulent chronic bronchitis J41.8 COPD type: chronic bronchitis Chronic bronchitis type: mixed simple and mucopurulent Ground glass opacity present on imaging of lung R91.8 Mixed simple and mucopurulent chronic bronchitis J41.8 Chronic bronchitis type: mixed simple and mucopurulent Hypogammaglobulinemia D80.1 Multiple pulmonary nodules R91.8 IgM deficiency D80.4 IgA deficiency D80.2 Time Spent (min) 17
== END 2023-09-28 10:14 | disposition home or self-care (01) ==
PROVIDERS: PCP Internal Medicine; Visit Provider Hospitalist
DX: J41.8 Mixed simple and mucopurulent chronic bronchitis (principal); R91.8 Other nonspecific abnormal finding of lung field; D80.1 Nonfamilial hypogammaglobulinemia; D80.4 Selective deficiency of immunoglobulin M [IgM]; D80.2 Selective deficiency of immunoglobulin A [IgA]
CPT/HCPCS: 99214

== ENCOUNTER → 2023-09-28 09:47 | Outpatient (BNVA) | payer BC, SELFPAY | PROVIDERS: PCP Internal Medicine; Visit Provider Hospitalist | DX: K21.9 Gastro-esophageal reflux disease without esophagitis (principal) ==

== ENCOUNTER 2024-07-28 09:50 | Outpatient (REF) | payer BC, SELFPAY ==
--- NOTE | ~2024-07-28 | XR_ITS ---
EXAMINATION: XR CHEST 2 VIEWS HISTORY: J90 - Pleural effusion, not elsewhere classified COMPARISON: Correlation is made with a chest CT dated 08/20/2023. FINDINGS: PA and lateral views of the chest are submitted. There is a small to moderate right pleural effusion. Underlying atelectasis or pneumonia at the right lung base is not excluded. The left lung is clear. There is no left pleural effusion, pneumothorax, or pulmonary vascular congestion. The heart is normal in size. The patient is status post median sternotomy and valve replacement. There is a compression deformity of a lower thoracic vertebral body which is new from the prior CT. XR/XR chest 2V IMPRESSION: Small to moderate right pleural effusion. Underlying atelectasis or pneumonia at the right lung base is not excluded. Electronically signed by: Ernie Schmitt MD 07/28/2024 11:04 AM EDT
== END 2024-07-28 09:51 | disposition home or self-care (01) ==
LOC: HO.XRAY 09:50
PROVIDERS: PCP Internal Medicine; Visit Provider Hospitalist
DX: J90 Pleural effusion, not elsewhere classified (principal); J41.8 Mixed simple and mucopurulent chronic bronchitis; R91.8 Other nonspecific abnormal finding of lung field; D80.1 Nonfamilial hypogammaglobulinemia; D80.2 Selective deficiency of immunoglobulin A [IgA]; D80.4 Selective deficiency of immunoglobulin M [IgM]
CPT/HCPCS: 71046

== ENCOUNTER 2024-07-28 09:50 | Outpatient (AMB) | payer BC, SELFPAY ==
[2024-07-28 09:52] VITALS: BP 158/72; PULSE 54; O2SAT 97; BMI 30.9
--- NOTE | 2024-07-28 09:52 | MHC.OFFVIS ---
Vital Signs 07/28/24 09:52 Height 5 ft 10.5 in Weight 218 lb 4.122 oz BMI 30.9 BP 158/72 H Blood Pressure Location Lt brachial Position Sitting Pulse 54 Pulse Source Pulse Oximeter Pulse Oximetry (%) 97 Oxygen Delivery Method Room Air Intake Visit Reasons: S/p hospital admit (per Dr. 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 Cam Basurto), chronic sinusitis s/p sinus surgery 2012, s/p aortic valve replacement and aorta mesh graft placed 2014, receives annual echos under the care of [facility] cardiology. Referred by PCP initially for chronic bronchitis, as patient with persistent productive cough, unchanged over the past two months despite treatment, CXR negative. He was then sent for chest CT 08/16/22 at [facility] and revealed multiple pulmonary nodules as well as ground glass opacities. Full report below. Patient had continued symptoms, productive cough with thick yellow sputum and was treated with Augmentin, zpak and started on Trelegy this past Sunday. He also uses Flonase as well as saline rinses. He has had noticeable improvements in symptoms. He denies any chest tightness, wheezing or hemoptysis. At baseline patient is quite active and denies any dyspnea. Last PFT 2021, no restrictive or obstructive ventilatory defects. He denies any family history of lung cancer, father, smoker, had COPD.?? 10/24/2022 the patient is here for pulmonary follow-up visit. Overall the patient has been fairly anxious of his respiratory issues. He has been using Advair inhaler with good response. He did not respond well to Trelegy as well as other inhalers afterwards. She would like to stay on the Advair inhaler. Does not seem like the powder bothersome too much but I do believe that the Advair HFA will be a good option for him as able provide good the position of the medication and allows him to use a spacer. We did talk about is issues with chronic bronchitis. The patient is a good candidate for azithromycin 3 times a week in view of the chronic mucus production. The patient is agreeable to this. He just completed a course of doxycycline. In addition to this the patient can use a flutter valve to help him clear the mucus. I will request an Acapella valve from the [employer] to provide that he can use twice a day. He does not have a nebulizer at this point which is okay will consider adding a nebulizer any new future. The nebulizer will also provide additional chest physical therapy. Patient did have a CT scan of the chest that was personally by me. Appears that his nodular densities has significantly improved. He still has some hazy areas of ground-glass I inflammation. But otherwise the nodular densities have decreasing size. He still has small nodular densities present however. Will require additional followups in the future. 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 His last level trough was 800 which is reassuring. Will continue the therapy at this point. He has been fully vaccinated. Will have him come back and 6-8 weeks with PFTs. 12/15/2022 the patient is here for pulmonary follow-up visit. Continues to have significant chest congestion. Moderate severity. The Advair inhaler does not seem to be as effective as the Wixela. He is going to go back to the Wixela at this time. The patient does have significant chest congestion. Will go ahead and provide with a nebulizer in order for him to use it twice a day with Xopenex. Also will request a Acapella valve from the [employer] in order for him to perform chest physical therapy and bronchopulmonary hygiene. Sputum culture once able. The patient will continue with the azithromycin for now. 3 times a week. Hopefully with the nebulizer therapy he notices improvement. We did review again his CT scan of the chest from September 2022 demonstrating areas of ground-glass opacities and also pulmonary nodules. If the patient continues to improve will follow-up with a CT scan in September of 2023. otherwise we can always consider reimaging at an earlier time if he does not make any improvements. 04/18/2023 The patient is here for a pulmonary follow up visit. He is doing better. Still has acongested cough, moderate in severity. He was able to produce a sample and sent for culture. Still on the IgG therapy, although IgA deficiency. Always a concern about severe allergic reactions. He does get the IVIG through [facility]. He did f/u with immunology. Bloodwork demonstrating minimal B cell activity. He will undergo genetic testing as per the patient. He continues to have significant nasal congestions and has continue the Afrin. He understands that it is not good for im to use it regularly due to the rebound nasal congestion. He will try to decrease the amount and tria ipratropium. He did have a CT chest back in 2022 with subcentemeter pulmonary nodules. We will follow up in the summer after his repeat CT chest. 09/28/2023 the patient is here for a pulmonary follow-up visit. Overall he is feeling a lot better. His cough is significantly improved. He was able to stop a lot of his medications because he feels better. The patient did have a resistant form of Haemophilus influenzae. He responded well to the quinolones. In the meantime he should continue with chest physical therapy to minimize mucus burden specially since there is a possibility that the organism a return. He has been able to be off the inhalers. Unfortunately still struggling with the Afrin. He is trying to decrease the amount of the medication. the inhalers that we all the nasal sprays that we prescribed a not help. He is going to continue working with ENT in order to see about weaning completely. The patient did have a CT scan of the chest which we personally reviewed. The ground-glass density area has improved which is reassuring. Although he does have his 1 cm ground-glass nodular density in the right upper lobe now that will need follow-up. No solid components within it. Although may be inflammatory still a chance that this could be a smoldering precancerous lesion. Therefore will plan to repeat a CT scan in a year's time. If the patient continues to do well follow-up after the CT scan. If he develops any worsening symptoms he will call for an earlier assessment. 07/28/2024 the patient is here for a pulmonary follow-up visit. The patient has had a very eventful few months. Initially was having issues with falls and was evaluated at [facility] [place]. He had a CT scan of the chest back in May demonstrating what appeared to be diskitis and also osteomyelitis of the thoracic spine on the bottom. He was evaluated by Infectious Disease and placed on IV antibiotics. He completed about 6 weeks and then had reimaging still demonstrating the findings on the MRI and therefore he is in another therapy. In the meantime he had a chest x-ray done demonstrating a moderate-sized pleural effusion this was a [facility] on 07/23/2024. I did personally reviewed. Had him come in today for an appointment and he did have a repeat. Does have significant dullness to percussion about midway up and also has an x-ray done which I personally reviewed demonstrating the same findings. Will go ahead and request a diagnostic thoracentesis that this time specially because of the ongoing infection. Will send for blood work as well. He prefers to do it a [facility] [place] were all his other doctors are located. I believe that is reasonable. Meantime will continue to take his antibiotics and will follow-up with the results. 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 Hypogammaglobulinemia Vitamin D deficiency Obesity Hyperlipemia Hypertension Hypothyroidism, acquired History of thyroid cancer Chronic bronchitis Surgical History (Updated 09/01/22 @ 09:11 by Lisandra Lopez PA-C) History of sinus surgery (~2012) History of cholecystectomy (~2009) History of thyroidectomy, total (~2001) History of endovascular stent graft for abdominal aortic aneurysm (AAA) (~2014) History of aortic valve replacement (~2014) Social History Patient Tobacco Use Status: Former Tobacco user Tobacco use type: Cigarette and Cigar Years Smoked: 7 Review of Systems Const Denies chills, Reports fatigue, Denies fever(s), Reports frequent falls, Denies weight gain and Denies weight loss Eyes Denies dry eyes, Denies irritation and Denies itchy eyes ENT Denies Normal hearing present and Denies dizziness Card Denies chest pain, Denies leg edema, Denies lightheadedness, Denies palpitations, Reports dyspnea on exertion, Denies orthopnea and Denies other Resp Denies cough, Reports dyspnea on exertion and Denies wheezing GI Denies hematochezia and Denies change in stool character Musc Reports abnormal gait, Reports back pain, Reports arthralgias, Reports muscle weakness, Denies numbness, Denies radiating pain into limb and Denies tingling Neuro Denies Normal hearing present, Reports abnormal gait, Denies dizziness, Reports frequent falls, Denies numbness and Denies tingling Psych Reports anxiety Endo Reports fatigue and Denies palpitations Samuel/Lymph Denies lymphadenopathy Aller/Immun Denies itchy eyes, Denies seasonal rhinorrhea and Denies wheezing Physical Exam Vital Signs: Last Vital Signs Pulse 54 07/28/24 09:52 BP 158/72 H 07/28/24 09:52 Pulse Ox 97 07/28/24 09:52 Oxygen Delivery Method Room Air 07/28/24 09:52 BMI result Body Mass Index 30.9 Const General: cooperative, healthy appearing, comfortable, no acute distress, well developed and alert Nutritional Appearance: obese Orientation/consciousness: patient oriented x3 Limitations: no limitations HEENT Head: Yes normal to inspection, Yes normocephalic and Yes atraumatic Ears: hearing grossly normal bilaterally and external ears normal Eyes General: appearance normal, both eyes and all related structures Eyelids: Yes eyelids normal Sclerae: sclerae normal EOM: EOMs intact bilaterally Neck Neck: Yes normal visual inspection and Yes no lymphadenopathy Chest Chest palpation & inspection: normal inspection of the chest Resp Effort & Inspection: normal respiratory effort, able to speak in complete sentences, no audible wheezes, no cough, no stridor, not tachypneic, no tripod positioning and no use of accessory muscles Auscultation: diminished lung sounds Percussion: dullness Mid: right and Lower: right Cardio Jugular venous distension: no JVD Rate: regular rate Rhythm: regular rhythm Skin Other: warm, dry General skin exam: no rashes or lesions noted Neuro General: patient oriented x3 Cranial nerves: No Normal hearing present Cognition (Neuro): normal cognition Gait exam (Neuro): Normal gait present Extrem General: Yes normal to inspection, Yes capillary refill normal, Yes no clubbing, cyanosis or edema and Yes no pedal edema Psych Appearance: grossly normal and well kempt Speech and movement: Normal speech and movement present and Clear speech present Affect: normal affect Attitude: cooperative Thought process: Normal thought process present Thought content: Normal thought content present Insight: Good insight present (Psych) Judgement: Good judgement present (Psych) Results Reviewed Results Reviewed: pesonally reviewed CXR 07/28 and 07/23 with mod right sided effusion, and CT chest 05/2024 with osteo and minimal right sided pleural effusion Assessment & Plan Assessment & Plan (1) COPD (chronic obstructive pulmonary disease): Code(s): J44.9 - Chronic obstructive pulmonary disease, unspecified Category: Medical Qualifiers: COPD type: chronic bronchitis Chronic bronchitis type: mixed simple and mucopurulent Qualified Code(s): J41.8 - Mixed simple and mucopurulent chronic bronchitis (2) Ground glass opacity present on imaging of lung: Code(s): R91.8 - Other nonspecific abnormal finding of lung field Category: Medical (3) Chronic bronchitis: Code(s): J42 - Unspecified chronic bronchitis Category: Medical Qualifiers: Chronic bronchitis type: mixed simple and mucopurulent Qualified Code(s): J41.8 - Mixed simple and mucopurulent chronic bronchitis (4) Hypogammaglobulinemia: Comment: (on IVIG -Dr. Cam Basurto) Code(s): D80.1 - Nonfamilial hypogammaglobulinemia Category: Medical (5) Multiple pulmonary nodules: Code(s): R91.8 - Other nonspecific abnormal finding of lung field Category: Medical (6) IgM deficiency: Code(s): D80.4 - Selective deficiency of immunoglobulin M [IgM] Category: Medical (7) IgA deficiency: Code(s): D80.2 - Selective deficiency of immunoglobulin A [IgA] Category: Medical (8) Pleural effusion: Code(s): J90 - Pleural effusion, not elsewhere classified Category: Medical Plan Moderate size right sided pleural effusion in the setting of vertebral osteomyelitis/ discitis. Will arrange for a US guided thoracentesis. Pt prefers [facility] DON as needed nebulizer BID with xopenex CT chest done 05/2024 IVIG at [facility] continue IV Abx as per ID F/U after thoracentesis Orders: Orders US drain thoracentesis w image Today J90 - Pleural effusion, not elsewhere classified Cell Count w Diff Pleural Fld Today J90 - Pleural effusion, not elsewhere classified Other Ref Test - Misc Today J90 - Pleural effusion, not elsewhere classified LDH Pleural Fluid Today J90 - Pleural effusion, not elsewhere classified Routine Culture w Gram Stain Today J90 - Pleural effusion, not elsewhere classified Total Protein Pleural Fluid Today J90 - Pleural effusion, not elsewhere classified XR chest 2V Today J90 - Pleural effusion, not elsewhere classified pH Pleural Fluid Today J90 - Pleural effusion, not elsewhere classified Coding Level of Care Code Est Pt Level 5 (03112) Diagnoses Mixed simple and mucopurulent chronic bronchitis J41.8 COPD type: chronic bronchitis Chronic bronchitis type: mixed simple and mucopurulent Ground glass opacity present on imaging of lung R91.8 Mixed simple and mucopurulent chronic bronchitis J41.8 Chronic bronchitis type: mixed simple and mucopurulent Hypogammaglobulinemia D80.1 Multiple pulmonary nodules R91.8 IgM deficiency D80.4 IgA deficiency D80.2 Pleural effusion J90 Time Spent (min) 60
--- OUTSIDE RECORDS SUMMARY | 2024-07-28 10:38 | XMS_ITS | Clinical Summary ---
Author Organization [facility] Address [address] [place] [address] Phone Care Team Providers Care Optical Coating Technician Name Role Phone Chilo Orellana MD Primary Care Provider [phone] Allergies Active Allergy Reactions Criticality Noted Date Comments Escitalopram Other,Fatigue Medium 11/21/2023 Other reaction(s): sedation Medications multivitamin (MULTIPLE VITAMINS ORAL) Route: Take 1 tablet by mouth daily. - Oral 12/10/19 15 Active rosuvastatin (CRESTOR) 40 mg tablet Take 1 tablet (40 mg total) by mouth 1 (one) time each day. 06/17/19 25 Active fluticasone (VERAMYST) 27.5 mcg/actuation nasal spray Administer 2 sprays into each nostril 1 (one) time each day. 06/17/19 25 Active amLODIPine (NORVASC) 5 mg tablet Take 1 tablet (5 mg total) by mouth 1 (one) time each day. 30 each 06/28/19 25 Active cholecalcifero l (VITAMIN D-3) 50 mcg (2,000 unit) tablet Take 1 tablet (2,000 Units total) by mouth 1 (one) time each day. 30 tablet 06/29/19 25 025 Active ferrous sulfate 325 mg (65 mg elemental iron) tablet Take 1 tablet (325 mg total) by mouth 3 (three) times a week. 12 each 07/01/19 25 025 Active FLUoxetine (PROzac) 20 mg capsule Take 1 capsule (20 mg total) by mouth 1 (one) time each day. 30 each 06/28/19 25 Active furosemide (LASIX) 20 mg tablet Take 1 tablet (20 mg total) by mouth 1 (one) time each day. 30 each 06/28/19 25 Active levothyroxine (SYNTHROID, LEVOTHROID) 137 mcg tablet Take 1 tablet (137 mcg total) by mouth 1 (one) time each day before breakfast. 06/28/19 25 Active levothyroxine (SYNTHROID, LEVOTHROID) 137 mcg tablet Take 2 tablets (274 mcg total) by mouth 1 (one) time each day before breakfast. 06/28/19 Active lidocaine 4 % patch Apply 2 patches topically 1 (one) time each day. BACK PAIN 60 each 06/29/19 25 025 Active metoprolol tartrate (LOPRESSOR) 25 mg tablet TAKE 1/2 TABLET TWICE A DAY 90 tablet 2 07/23/19 Active acetaminophen (TYLENOL) 325 mg tablet Take 2 tablets (650 mg total) by mouth every 6 (six) hours. 06/28/19 25 025 aspirin 81 mg chewable tabletIndicati ons:myocardial infarction prevention Chew 1 tablet (81 mg total) 1 (one) time each day. 30 each 06/28/19 25 025 metoprolol tartrate (LOPRESSOR) 25 mg tablet Take 0.5 tablets (12.5 mg total) by mouth 2 (two) times a day. 30 each 06/28/19 25 025 Discontinued polyethylene glycol (MIRALAX) 17 gram packet Take 17 g by mouth 2 (two) times a day. 1020 g 06/28/19 25 025 senna (SENOKOT) 8.6 mg tablet Take 2 tablets (17.2 mg total) by mouth at bedtime. 60 each 06/28/19 25 025 thiamine 100 mg tablet Take 1 tablet (100 mg total) by mouth 1 (one) time each day. 30 tablet 06/28/19 25 025 cefTRIAXone 2 g in sterile water 20 mL syringeIndicat ions:osteomyel itis Infuse 2 g into a venous catheter 1 (one) time each day at the same time for 24 doses. 06/28/19 025 diazePAM (VALIUM) 5 mg tabletIndicati ons:Primary insomnia Take 1 tablet (5 mg total) by mouth at bedtime as needed (insomnia). Max Daily Amount: 5 mg 06/28/19 25 025 docusate sodium (COLACE) 100 mg capsule Take 1 capsule (100 mg total) by mouth 2 (two) times a day. 60 each 06/28/19 25 025 lactobacillus acidoph-l.bulg ar 100 million cell granules in packet Take 1 packet by mouth 3 (three) times a day with meals for 24 days. 06/28/19 025 traMADoL 25 mg tablet Take 25 mg by mouth 2 (two) times a day if needed for severe pain for up to 7 days. Max Daily Amount: 50 mg 14 tablet 06/28/19 025 vancomycin (VANCOCIN) 2000 mg/500 mL solution IVPBIndication s:osteomyeliti s Infuse 500 mL (2,000 mg total) into a venous catheter 1 (one) time each day at the same time for 24 days. 06/28/19 025 Active Problems Problem Noted Date Diagnosed Date Pure hypercholesterolemia 06/16/2024 Primary hypertension 06/16/2024 Discitis of thoracic region 06/16/2024 Other acute osteomyelitis, m ultiple sites ([facility] V24, [facility] V28) 06/16/2024 Osteomyelitis ([facility] V24, [facility] V28) 025 CVID (common variable immuno deficiency) ([facility] V24, [facility] V28) 06/26/2021 Acute ITP ([facility] V24, [facility] V28) 06/26/2021 Encounters Date Type Department Care Team Description 07/02/2024 8:00 AM EDT - 07/02/2024 11:59 PM EDT Hospital Encounter [facility] [address] [place] [address] 2nd [place] [address] Prosper Levy MD CVID (common variable immunodeficiency) ([facility] V24, [facility] V28) (Primary Dx) Discharge Disposition: Home or Self Care 06/23/2024 Plan of Care Documentation [facility] [address] [place] [phone] 06/18/2024 Plan of Care Documentation [facility] [address] [place] [phone] 06/15/2024 5:24 PM EDT - 06/27/2024 11:30 AM EDT Hospital Encounter [facility] [address] [place] [phone] Dea Paiz DO Primary insomnia (Primary Dx) Discharge Disposition: Home-Health Care [facility] 06/06/20[address] [facility] [address] [place] [address] Chilo Orellana MD Medical Records 06/04/2024 8:00 AM EDT - 06/04/2024 11:59 PM EDT Hospital Encounter [address] [phone] Prosper Levy MD CVID (common variable immunodeficiency) ([facility] V24, [facility] V28) (Primary Dx) Discharge Disposition: Home or Self Care 06/02/2024 7:00 AM EDT Ancillary Procedure [facility] [address] [place] [phone] 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 05/22/[address]24 [address] [facility] [address] [place] [address] Manoj Rushing NP medication change 05/07/2024 8:00 AM EDT - 05/07/2024 11:59 PM EDT Hospital Encounter [address] [phone] Prosper Levy MD CVID (common variable immunodeficiency) ([facility] V24, [facility] V28) (Primary Dx) Discharge Disposition: Home or Self Care from Last 3 Months Social History Tobacco Use Types Packs/Day Years Used Date Smoking Tobacco: Former Cigarettes Tobacco Cessation:Counseling Given: Not Answered Alcohol Use Standard Drinks/Week Comments Yes 0 (1 standard drink = 0.6 oz pur e alcohol) Health Literacy Answer Date Recorded How often do you need to hav e someone help you when you read instructions, pamphlets, or other written material from your doctor or pharmacy? Never 06/26/2024 Caregiver: How often do you need to have someone help you when you read instructions, pamphlets, or other written material from your doctor or pharmacy? Not on file 06/26/2024 Transportation Answer Date Recorded Has the lack of transportati on kept you from meetings, work, or from getting things needed for daily living? No Has the lack of transportati on kept you from medical appointments or from getting medications? No 06/16/2024 Social Isolation Answer Date Recorded How often do you feel lonely or isolated from th ose around you? Never 06/26/2024 Interpersonal Safety Answer Date Record ed Physical Abuse 06/15/2024 Verbal Abuse 06/15/2024 Sex and Gender Information Value Date Recorded Sex Assigned at Male 03/12/2024 8:02 AM EST Legal Sex Male 9:25 PM EST Gender Identity Male 03/12/2024 8:02 AM EST Sexual Orientation Straight 03/12/2024 8: 02 AM EST Obstetrics History Last Filed Vital Signs Vital Sign Reading Time Taken Comments Blood Pressure 159/97 07/02/2024 8:14 AM EDT Pulse 59 07/02/2024 8:14 AM EDT Temperature 36.2 ??C (97.1 ??F) 07/02/2024 8:14 AM ED T Respiratory Rate 18 07/02/2024 8:14 AM EDT Oxygen Saturation 100% 07/02/2024 8:14 AM EDT Inhaled Oxygen Concentration - - Weight 98 kg (216 lb 0.8 oz) 07/02/2024 8:14 AM EDT Height 179 cm (5' 10.47 ) 06/13/2024 11:13 AM ED T Body Mass Index 30.59 06/13/2024 11:13 AM EDT Plan of Treatment Upcoming Encounters Date Type Department Care Team (Late st Contact Info) Description 07/30/2024 8:00 AM EDT Appointment [facility] [address] [phone] 08/27/2024 8:00 AM EDT Appointment [facility] [address] [phone] 10/08/2024 9:15 AM EDT Office Visit [facility] Hematology Oncology [address] [place] [address] Prosper Levy MD [address] [place] [address] 12/01/2024 2:30 PM EDT Office Visit [facility] Cardiology [facility] [address] [place] [address] [address] [place] [phone] Reji Dudley MD [address] [place] [address] Dr [address] [place] [address] Health Maintenance Due Date Last Done Comments Zoster Vaccines (1 of 2) 05/05/2008 03/10/2008 Cholesterol Screening (Lipid Panel) 02/03/2022 Hepatitis C Screening 02/03/2022 Medicare Annual Wellness Visit 02/03/2022 COVID-19 Vaccine (9 - Pfizer risk 2023- season) 2024 11/08/2023, 05/01/2023, 11/17/2022, Additional history exists Depression Screening 06/26/2025 06/26/2024 Hypertension/CHF/CAD Annual BMP Blood Test 06/26/2025 06/26/2024, 06/24/2024, 06/23/2024, Additional history exists Social Influencers of Health Screening 06/26/2025 06/26/2024 Falls Risk Assessment 07/02/2025 07/02/2024 DTaP,Tdap,and Td Vaccines (2 - Td or Tdap) 12/31/2033 01/01/2024 HIB Vaccines Aged Out 06/09/2008 No longer eligi ble based on patient's age to complete this topic Meningococcal ACWY Vaccine Aged Out 07/09/2008 N o longer eligible based on patient's age to complete this topic Hepatitis A Vaccines Aged Out 04/20/2009, 09/01/2008, 08/03/2008 No longer eligible based on patient's age to complete this topic Hepatitis B Vaccines Completed 04/20/2009, 09/01/2008, 08/03/2008 RSV Immunization Adult Patients Completed 11/01/2022 Influenza Vaccine Completed 12/13/2023, , 12/09/2021, Additional history exists Pneumococcal Vaccine: 50+ Years Completed 05/11/2024, 09/28/2022, 08/23/2016, Additional history exists HPV Vaccines Aged Out No longer eligi ble based on patient's age to complete this topic IPV Vaccines Aged Out No longer eligi ble based on patient's age to complete this topic MMR Vaccines Aged Out No longer eligi ble based on patient's age to complete this topic Meningococcal B Vaccine Aged Out No l onger eligible based on patient's age to complete this topic RSV Immunization Patients Under 20 months Aged Out No longer eligible based on patient's age to complete this topic Varicella Vaccines Aged Out No longer eligible based on patient's age to complete this topic Procedures Procedure Name Priority Date/Time Associated Diagnosis Comments CREATININE, SERUM Routine 06/26/2024 11: 47 AM EDT VANCOMYCIN, TROUGH Timed 06/26/2024 11 :47 AM EDT ALANINE AMINOTRANSFERASE Routine 06/26/2024 4:40 AM EDT ASPARTATE AMINOTRANSFERASE Routine 06/26/2024 4:40 AM EDT CREATININE, SERUM Routine 06/24/2024 4:3 0 AM EDT VANCOMYCIN, TROUGH Timed 06/24/2024 4: 30 AM EDT CBC WITH AUTO DIFFERENTIAL Routine 06/23/2024 5:12 AM EDT C-REACTIVE PROTEIN Routine 06/23/2024 5: 12 AM EDT SEDIMENTATION RATE Routine 06/23/2024 5: 12 AM EDT COMPREHENSIVE METABOLIC PANEL Routine 06/23/2024 5:12 AM EDT CBC AND DIFFERENTIAL Routine 06/23/2024 5:12 AM EDT POCT GLUCOSE BLOOD Routine 06/22/2024 3: 47 PM EDT CREATININE, SERUM Routine 06/22/2024 5:0 7 AM EDT VANCOMYCIN, TROUGH Timed 06/22/2024 5: 07 AM EDT CREATININE, SERUM Add-On 06/20/2024 4:4 5 AM EDT VANCOMYCIN, TROUGH Timed 06/20/2024 4: 45 AM EDT VANCOMYCIN, TROUGH Timed 06/18/2024 3: 55 AM EDT SEDIMENTATION RATE Add-On 06/16/2024 4: 09 AM EDT C-REACTIVE PROTEIN Add-On 06/16/2024 4: 09 AM EDT COMPREHENSIVE METABOLIC PANEL Add-On 06/16/2024 4:09 AM EDT CBC WITH AUTO DIFFERENTIAL Routine 06/16/2024 4:09 AM EDT CREATININE, SERUM Routine 06/16/2024 4:0 9 AM EDT CBC AND DIFFERENTIAL Routine 06/16/2024 4:09 AM EDT VANCOMYCIN, TROUGH Timed 06/16/2024 4: 09 AM EDT XR CHEST 2 VIEWS Routine 06/15/2024 9:49 PM EDT TRANSTHORACIC ECHOCARDIOGRAM (TTE) COMPLETE Routine 06/02/2024 7:50 AM EDT 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 Creatinine 0.56(L) 0.70 - 1.30 mg/dL LAB CHEMISTRY METHOD 06/26/2024 12:27 PM EDT [facility] eGFR 102 >=60 mL/min/1. 73m2 LAB CHEMISTRY METHOD 06/26/2024 12:27 PM EDT [facility] Comment:Calculation based on the??Chronic Kidney Disease Epidemiology Collaboration (CKD-EPI) equation refit??without adjustment for race. Blood Blood sample taken from central line / Unknown Venipuncture / Unknown 06/26/2024 11:47 AM EDT 06/26/2024 11:53 AM EDT Dea Paiz [employer] LAB BLOOD ORDERABLES Gretchen l Result Performing Organization Address City/[facility] de Phone Number [facility] [address] [place] [address], [place] [phone] * Vancomycin, trough Please draw 30-60 minutes prior to vancomycin dose (06/26/2024 11:47 AM EDT) Only the most recent of6 resultswithin the time period is included. Vancomycin Trough 14.3 10.0 - 20.0 mcg/mL LAB CHEMISTRY METHOD 06/26/2024 12:27 PM EDT [facility] Blood Blood sample taken from central line / Unknown Venipuncture / Unknown 06/26/2024 11:47 AM EDT 06/26/2024 11:53 AM EDT Dea A Izabel DO LAB BLOOD ORDERABLES Gretchen l Result Performing Organization Address [facility]/ZIP Co de Phone Number [facility] [address] [place] [address], [place] [phone] * Alanine aminotransferase (06/26/2024 4:40 AM EDT) ALT (SGPT) 60 10 - 60 unit/L LAB CHEMISTRY METHOD 06/26/2024 7:17 AM EDT [facility] Blood Blood sample taken from central line / Unknown Venipuncture / Unknown 06/26/2024 4:40 AM EDT 06/26/2024 6:02 AM EDT Kita PALMER LAB BLOOD ORDERABLES Final R esult Performing Organization Address [facility] Co de Phone Number [facility] [address] [place] [address], [place] [phone] * (ABNORMAL) Aspartate aminotransferase (06/26/2024 4:40 AM EDT) AST (SGOT) 52(H) 10 - 42 unit/L LAB CHEMISTRY METHOD 06/26/2024 7:17 AM EDT [facility] Blood Blood sample taken from central line / Unknown Venipuncture / Unknown 06/26/2024 4:40 AM EDT 06/26/2024 6:02 AM EDT Kita PALMER LAB BLOOD ORDERABLES Final R esult Performing Organization Address [facility]/ZIP Co de Phone Number [facility] [address] [place] [address], [place] [phone] * (ABNORMAL) CBC auto differential (06/23/2024 5:12 AM EDT) Only the most recent of2 resultswithin the time period is included. WBC 7.1 4.8 - 10.8 [facility] LAB HEMETOLOGY METHOD 06/23/2024 6:34 AM [facility] RBC 4.30(L) 4.50 - 5.50 M/mcL LAB HEMETOLOGY METHOD 06/23/2024 6:34 AM [facility] Hemoglobin 11.9(L) 13.5 - 17.5 g/dL LAB HEMETOLOGY METHOD 06/23/2024 6:34 AM [facility] Hematocrit 37.5(L) 42.0 - 54.0 % LAB HEMETOLOGY METHOD 06/23/2024 6:34 AM [facility] MCV 87.8 79.0 - 98.0 FL LAB HEMETOLOGY METHOD 06/23/2024 6:34 AM [facility] MCH 27.9 27.0 - 32.0 pcg LAB HEMETOLOGY METHOD 06/23/2024 6:34 AM [facility] MCHC 31.7(L) 32.0 - 37.0 g/dL LAB HEMETOLOGY METHOD 06/23/2024 6:34 AM [facility] RDW 15.9(H) 11.0 - 15.0 % LAB HEMETOLOGY METHOD 06/23/2024 6:34 AM [facility] Platelets 264 130 - 400 K/mcL LAB HEMETOLOGY METHOD 06/23/2024 6:34 AM [facility] MPV 9.7 7.0 - 11.0 FL LAB HEMETOLOGY METHOD 06/23/2024 6:34 AM [facility] NRBC 0.0 <1.0 % LAB HEMETOLOGY METHOD 06/23/2024 6:34 AM [facility] NRBC Absolute 0.00 <0.10 K/mcL LAB HEMETOLOGY METHOD 06/23/2024 6:34 AM [facility] Neutrophils Relative 60.5 % LAB HEMETOLOGY METHOD 06/23/2024 6:34 AM [facility] Lymphocytes Relative 24.9 % LAB HEMETOLOGY METHOD 06/23/2024 6:34 AM [facility] Monocytes Relative 8.6 % LAB HEMETOLOGY METHOD 06/23/2024 6:34 AM [facility] Eosinophils Relative 3.9 % LAB HEMETOLOGY METHOD 06/23/2024 6:34 AM [facility] Basophils Relative 2.0 % LAB HEMETOLOGY METHOD 06/23/2024 6:34 AM [facility] Immature Granulocytes Relative 0.1 % LAB HEMETOLOGY METHOD 06/23/2024 6:34 AM [facility] Neutrophils Absolute 4.31 1.50 - 7.00 K/mcL LAB HEMETOLOGY METHOD 06/23/2024 6:34 AM [facility] Lymphocytes Absolute 1.77 1.00 - 5.00 K/mcL LAB HEMETOLOGY METHOD 06/23/2024 6:34 AM [facility] Monocytes Absolute 0.61 0.20 - 1.00 K/mcL LAB HEMETOLOGY METHOD 06/23/2024 6:34 AM [facility] Eosinophils Absolute 0.28 0.00 - 0.50 K/mcL LAB HEMETOLOGY METHOD 06/23/2024 6:34 AM [facility] Basophils Absolute 0.14 0.00 - 0.20 K/mcL LAB HEMETOLOGY METHOD 06/23/2024 6:34 AM [facility] Immature Granulocytes Absolute 0.01 0.00 - 0.03 K/mcL LAB HEMETOLOGY METHOD 06/23/2024 6:34 AM [facility] Blood Venous blood specimen / Unknown Venipuncture / Unknown 06/23/2024 5:12 AM EDT 06/23/2024 6:10 AM EDT Dea Paiz LAB BLOOD ORDERABLES Gretchen l Result Performing Organization Address City/[facility]/ZIP Co de Phone Number [facility] [address] [place] [address], [place] [phone] * (ABNORMAL) Sedimentation rate (06/23/2024 5:12 AM EDT) Only the most recent of2 resultswithin the time period is included. [facility] Sed Rate 49(H) 0 - 20 mm/hr LAB HEMETOLOGY METHOD 06/23/2024 6:50 AM EDT [facility] Blood Venous blood specimen / Unknown Venipuncture / Unknown 06/23/2024 5:12 AM EDT 06/23/2024 6:10 AM EDT Dea Paiz LAB BLOOD ORDERABLES Gretchen l Result Performing Organization Address [facility] Co de Phone Number [facility] [address] [place] [address], [place] [phone] * C-reactive protein (06/23/2024 5:12 AM EDT) Only the most recent of2 resultswithin the time period is included. [facility] C-Reactive Protein <0.29 <=0.50 mg/dL LAB CHEMISTRY METHOD 06/23/2024 9:36 AM EDT [facility] Blood Venous blood specimen / Unknown Venipuncture / Unknown 06/23/2024 5:12 AM EDT 06/23/2024 6:10 AM EDT [facility] BLOOD ORDERABLES Gretchen l Result Performing Organization Address City/[facility]/ZIP Co de Phone Number [facility] [address] [place] [address], [place] [phone] * (ABNORMAL) Comprehensive metabolic panel (06/23/2024 5:12 AM EDT) Only the most recent of2 resultswithin the time period is included. Sodium 141 133 - 145 mmol/L LAB CHEMISTRY METHOD 06/23/2024 9:27 AM [facility] Potassium 4.0 3.5 - 5.5 mmol/L LAB CHEMISTRY METHOD 06/23/2024 9:27 AM [facility] Chloride 109 96 - 110 mmol/L LAB CHEMISTRY METHOD 06/23/2024 9:27 AM [facility] CO2 28 21 - 32 mmol/L LAB CHEMISTRY METHOD 06/23/2024 9:27 AM [facility] Anion Gap 4 3 - 11 LAB CHEMISTRY METHOD 06/23/2024 9:27 AM [facility] Glucose 80 70 - 100 mg/dL LAB CHEMISTRY METHOD 06/23/2024 9:27 AM [facility] BUN 12 5 - 25 mg/dL LAB CHEMISTRY METHOD 06/23/2024 9:27 AM [facility] Creatinine 0.51(L) 0.70 - 1.30 mg/dL LAB CHEMISTRY METHOD 06/23/2024 9:27 AM [facility] eGFR 105 >=60 mL/min/1. 73m2 LAB CHEMISTRY METHOD 06/23/2024 9:27 AM [facility] Comment:Calculation based on the??Chronic Kidney Disease Epidemiology Collaboration (CKD-EPI) equation refit??without adjustment for race. BUN/Creatinine Ratio 23.5 LAB CHEMISTRY METHOD 06/23/2024 9:27 AM [facility] Calcium 9.5 8.5 - 10.5 mg/dL LAB CHEMISTRY METHOD 06/23/2024 9:27 AM [facility] AST (SGOT) 62(H) 10 - 42 unit/L LAB CHEMISTRY METHOD 06/23/2024 9:27 AM [facility] ALT (SGPT) 65(H) 10 - 60 unit/L LAB CHEMISTRY METHOD 06/23/2024 9:27 AM EDT [facility] Alkaline Phosphatase 389(H) 42 - 121 unit/L LAB CHEMISTRY METHOD 06/23/2024 9:27 AM EDT [facility] Total Protein 5.8(L) 6.0 - 8.0 g/dL LAB CHEMISTRY METHOD 06/23/2024 9:27 AM EDT [facility] Albumin 2.8(L) 3.2 - 5.0 g/dL LAB CHEMISTRY METHOD 06/23/2024 9:27 AM EDT [facility] Total Bilirubin 0.3 0.0 - 1.4 mg/dL LAB CHEMISTRY METHOD 06/23/2024 9:27 AM EDT [facility] Blood Venous blood specimen / Unknown Venipuncture / Unknown 06/23/2024 5:12 AM EDT 06/23/2024 6:10 AM EDT us Dea Paiz DO LAB BLOOD ORDERABLES Gretchen l Result [facility] [address] [place] [address], [place] [phone] * POCT Glucose, blood (06/22/2024 3:47 PM EDT) [facility] Glucose POCT 97 70 - 100 mg/dL 06/22/2024 3:48 PM EDT [facility] Blood Capillary blood specimen / Unknown 06/22/2024 3:47 PM EDT 06/22/2024 3:49 PM EDT Dea Paiz DO LAB POINT OF CARE TEST DOCKED DEVICE UNSOLICITED RESULTS Final Result Performing Organization Address City/[facility]/ZIP Co de Phone Number [facility] [address] [place] [address], * XR Chest 2 Views (06/15/2024 9:49 PM EDT) Anatomical Region Laterality Modality Body Radiographic Ely ging 06/16/2024 7:10 AM EDT Impressions 06/16/2024 7:13 AM EDT Right PICC tip projects at expected junction of SVC with right atrium. Bibasilar opacities could be atelectasis. A minimal amount of fluid could be present. -------- FINAL REPORT -------- Dictated By: Uziel Bermudez Dictated Date: 06/16/2024 07:10 ET Assigned Physician: Uziel Bermudez Reviewed and Electronically Signed By: Uziel Bermudez Signed Date: 06/16/2024 07:13 ET Workstation ID: [id number] Transcribed By: Self Edit Transcribed Date: 06/16/2024 07:10 ET Narrative 06/16/2024 7:13 AM EDT EXAMINATION: CHEST CLINICAL INFORMATION: Line placement COMPARISON: Frontal view 07/02/18 TECHNIQUE: 2 views of the chest FINDINGS: There is kyphosis and rotation to the left. Right PICC is visualized to the expected region of the junction of SVC with right atrium. There is evidence of sternotomy with a prosthetic aortic valve. There is tortuosity the aorta. The cardiac size is top normal. There is no hilar mass. There is no edema. There are bibasilar opacities with blunting posteriorly. There is no pneumothorax. No suspicious focal bony lesion. Procedure Note Uziel Bermudez MD - 06/16/2024 EXAMINATION: CHEST CLINICAL INFORMATION: Line placement COMPARISON: Frontal view 07/02/18 TECHNIQUE: 2 views of the chest FINDINGS: There is kyphosis and rotation to the left. Right PICC is visualized to the expected region of the junction of SVCwith right atrium. There is evidence of sternotomy with a prostheticaortic valve. There is tortuosity the aorta. The cardiac size is topnormal. There is no hilar mass. There is no edema. There are bibasilar opacities with blunting posteriorly. There is no pneumothorax. No suspicious focal bony lesion. IMPRESSION: Right PICC tip projects at expected junction of SVC with right atrium. Bibasilar opacities could be atelectasis. A minimal amount of fluid couldbe present. -------- FINAL REPORT -------- Dictated By: Uziel Bermudez Dictated Date: 06/16/2024 07:10 ET Assigned Physician: Uziel Bermudez Reviewed and Electronically Signed By: Uziel Bermudez Signed Date: 06/16/2024 07:13 ET Workstation ID: [id number] Transcribed By: Self Edit Transcribed Date: 06/16/2024 07:10 ET us Santi PALMER IMG XR PROCEDURES Final Result * (ABNORMAL) TRANSTHORACIC ECHOCARDIOGRAM (TTE) COMPLETE (06/02/2024 7:50 AM EDT) Left Atrium Minor [place] 6.6 cm CV PACS Left Atrium Major [place] 5.9 cm CV PACS LA Area Sys (A2C) 26 cm2 CV PACS LA Area Sys (A4C) 26 cm2 CV PACS LA Volume (BP) 87 mL CV PACS RA Area 20.7 cm2 CV PACS RA 2D Volume 52 mL CV PACS AV Mean Gradient 4 mmHg CV PACS Ao VTI 22.8 cm CV PACS AV Peak Grzegorz 1.4 m/s CV PACS AV Peak Gradient 8 mmHg CV PACS AV Area Continuity Equation 2.9 cm2 CV PACS AV Area Peak Velocity 2.2 cm2 CV PACS Aortic Sinus Valsalva 4.4 cm CV PACS Ascending Aorta 3.7 cm CV PACS IVC Proximal 2.3 cm CV PACS IVC Proximal 0.8 cm CV PACS IVSD 1.1(A) 0.6 - 1.0 cm CV PACS LVIDD 4.9 4.2 - 5.8 cm CV PACS LVIDS 3.2 2.5 - 4.0 cm CV PACS LVOT Diameter 2.2 cm CV PACS LVOT Mean Grzegorz 0.5 m/s CV PACS LVOT Mean Grzegorz 0.5 m/s CV PACS LVOT Mean Grad 1 mmHg CV PACS LVOT Mean Grad 1 mmHg CV PACS LVOT Peak VTI 17.2 cm CV PACS LVOT Peak Grzegorz 0.8 m/s CV PACS LVOT Peak Gradient 2 mmHg CV PACS LVPWD 1.1(A) 0.6 - 1.0 cm CV PACS MV E' Tissue Velocity Lateral 5 cm/s CV PACS MV E' Tissue Velocity Septal 6 cm/s CV PACS LVOT Area 3.8 cm2 CV PACS LVOT Stroke Volume 65 mL CV PACS E Wave Deceleration Time 239 119 - 242 ms CV PACS MV Peak A Grzegorz 0.80 m/s CV PACS MV Peak E Grzegorz 0.60 m/s CV PACS KS End Max Velocity 1.1 m/s CV PACS PA End Diastolic Pressure 5 mmHg CV PACS PV Acceleration Time 109 ms CV PACS RV Diastolic Basal Dimension 4.8(A) 2.5 - 4.1 cm CV PACS RV S' 12 cm/s CV PACS TAPSE 23 mm CV PACS TR Peak Velocity 2.40 m/s CV PACS TR Peak Gradient 23 mmHg CV PACS E/E' Ratio Septal 10 CV PACS E/E' Ratio Averaged 11 CV PACS Relative Wall Thickness ratio 0.45 CV PACS LVOT:AV VTI Index 0.75 CV PACS FS 35 % CV PACS LV Mass 2D 200 g CV PACS AV Velocity Ratio 0.57 CV PACS E/A Ratio 0.8 CV PACS E/E' Ratio Lateral 12 CV PACS BSA 2.23 m2 CV PACS LA Volume Index (BP) 40 mL/m2 CV PACS LVIDD Index 2.25 cm/m2 CV PACS LVIDS Index 1.47 cm/m2 CV PACS LV Mass Index 2D 92 50 - 102 g/m2 CV PACS LVOT Stroke Index 30 mL/m2 CV PACS RA 2D Volume Index 24 18 - 32 mL/m2 CV PACS CIERA Index (VTI) 1.31 cm2/m2 CV PACS CIERA Index (Pk Grzegorz) 1.01 cm2/m2 CV PACS Ascending Aorta Index 1.70 cm/m2 CV PACS Right Ventricular Peak Systolic Pressure 52 mmHg CV PACS Est. RA Pressure 29 mmHg CV PACS Anatomical Region Laterality Modality Ultrasound Narrative 06/02/2024 11:22 AM EDT Left ventricle cavity size is normal. There is mild hypertrophy. Systolic function is normal with an ejection fraction of 55-60%. There are no regional LV wall motion abnormalities. 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 There is mild hypertrophy. Systolic function is normal with an ejection fraction of 55-60%. There are no regional LV wall motion abnormalities. Indeterminate diastolic function. Right Ventricle Right ventricle cavity is dilated. Systolic function is normal. Left Atrium Left atrium cavity is mildly dilated. Right Atrium Right atrium cavity is normal. IVC/SVC Inferior vena cava structure is normal. RA pressures is estimated to be 8 mmHg (IVC diameter >21 mm and decreases >50% during inspiration). Mitral Valve Mitral valve structure is normal. There is mild annular calcification. There is mild regurgitation. There is no significant stenosis noted. Tricuspid Valve Tricuspid valve structure is normal. There is mild regurgitation. There is no significant tricuspid valve stenosis. Aortic Valve The aortic valve is trileaflet. The leaflets are not thickened and exhibit normal excursion. The valve has been surgically replaced. There is a 27mm Magna Ease bioprosthetic valve. The prosthetic valve appears well-seated. Mean PG 3mmHg. AT 85ms There is no regurgitation or stenosis. Pulmonic Valve The pulmonic valve was not well visualized. There is mild pulmonic valve regurgitation. No significant pulmonary valve stenosis noted. Ascending Aorta The Sinus of Valsalva is(4.4 cm). The ascending aorta is (3.7 cm). Pericardium Pericardium appears normal. There is no pericardial effusion. Study Details Overall the study quality was adequate. Reji Dudley MD CV ECHO PROCEDURES Final Result from Last 3 Months Insurance [facility] BLUE CROSS - [place] MEDICARE ADVANTAGE Advance Directives Documents on File Type Date Recorded Patient [employer] Teacher Expl anation Advance Directives and Living Will 07/03/2024 10:49 AM PROXY Advance Directives and Living Will 06/16/2024 12:05 PM HEALTH CARE PROXY Advance Directives and Living Will 06/17/2024 12:39 PM HEALTH CARE PROXY NE W * Full Code - Default (Latest Code Status on File) Date Activated Date Inactivated Comments 06/15/2024 8:53 PM 06/27/2024 2:31 PM This is order is used when code status has not been discussed with the patient, or code status is otherwise unknown/unconfirmed To update the patient's code status, place a code status order. Do not modify or discontinue any currently active code status orders. Healthcare Agents on File Name Relationship Healthcare Agent Relationship Communication Kaylan Stock Spouse Health Care Agent Care Teams Optical Coating Technician Relationship Specialty Start Date End Date Chilo Orellana MD [address] [place] [id number] PCP - General Internal Medicine 01/16/24
== END 2024-07-28 11:57 | disposition home or self-care (01) ==
LOC: HO.HPS 09:51
PROVIDERS: PCP Internal Medicine; Visit Provider Hospitalist
DX: J41.8 Mixed simple and mucopurulent chronic bronchitis (principal); R91.8 Other nonspecific abnormal finding of lung field; D80.1 Nonfamilial hypogammaglobulinemia; D80.4 Selective deficiency of immunoglobulin M [IgM]; D80.2 Selective deficiency of immunoglobulin A [IgA]; J90 Pleural effusion, not elsewhere classified
CPT/HCPCS: 99215

== ENCOUNTER → 2024-07-28 10:45 | Outpatient (BNV) | payer BC, SELFPAY | PROVIDERS: PCP Internal Medicine; Visit Provider Radiology Diagnostic Radiology | DX: J90 Pleural effusion, not elsewhere classified (principal) | CPT/HCPCS: 71046 ==

== ENCOUNTER 2024-08-23 07:37 | Outpatient (REF) | payer MEDICARE, SELFPAY ==
--- NOTE | ~2024-08-23 | CT_ITS ---
CLINICAL HISTORY: R91.8 - Other nonspecific abnormal finding of lung field CT CHEST WITHOUT CONTRAST Comparison: CT/GA/SR - CT CHEST WO IV CON - 08/20/23 09:[address]/REG/SR - CT CHEST WO IV CON - 10/20/22 08:41 EDT Findings: Redemonstration of a small pericardial effusion. There are median sternotomy changes. There is an aortic valve prosthesis. Normal heart size. The thyroid gland is not well-visualized and likely atrophic in the absence of thyroid bed clips. No mediastinal lymphadenopathy. Right central line tip is in the SVC. There is a lpehh-ed-tchmtaoq right pleural effusion with adjacent compressive atelectasis. Trace left pleural effusion with adjacent atelectasis. No pneumothorax. Stable multiple sub-5 mm right middle and lower lobe nodules. Cholecystectomy clips. No adrenal mass. Multiple old right rib fractures. Adjacent endplate erosive changes at T10-11 are associated with sclerotic margins suggesting chronicity. Redemonstration of diffusely flowing endplate osteophytes in the thoracic spine with relatively preserved disc spaces. Findings can be associated with diffuse idiopathic skeletal hyperostosis. IMPRESSION: 1. Boxro-bz-dmjrtjpq right and tiny left pleural effusions. 2. Multiple stable right-sided pulmonary nodules which are 5 mm or less in size. 3. Abnormal adjacent endplates at T10-11 may be sequelae of prior infection or chronic osteomyelitis. ACR Fleischner Society recommendations (Neil, et al. Radiology 2017; 284(1): 228-43) suggest the following: No need for further follow-up for patients with high or low risk of lung cancer. This document has been electronically signed by: Marah Allan DO on 08/25/2024 15:14:33
== END 2024-08-23 07:38 | disposition home or self-care (01) ==
LOC: HO.CT 07:37
PROVIDERS: Visit Provider Hospitalist
DX: R91.8 Other nonspecific abnormal finding of lung field (principal)
CPT/HCPCS: 71250

== ENCOUNTER → 2024-08-23 08:00 | Outpatient (BNV) | payer MEDICARE, SELFPAY | PROVIDERS: Visit Provider Radiology Diagnostic Radiology | DX: R91.8 Other nonspecific abnormal finding of lung field (principal) | CPT/HCPCS: 71250 ==

== ENCOUNTER 2024-09-26 08:38 | Outpatient (REF) | payer MEDICARE, SELFPAY ==
--- OUTSIDE RECORDS SUMMARY | 2024-09-25 23:59 | XMS_ITS | Continuity of Care Document ---
Author Organization [facility] Address [address] [place] [address]- Care Team Providers Care Line Service Attendant Name Role Phone Chilo Orellana MD Primary Care Physician [phone] [place] [facility] [place] - 09/25/24 [facility] [address] [place] [id number] Encounter Type: Triage Allergies, Adverse Reactions, Alerts No Known Allergies Immunizations Given and Recorded Vaccine Date Status Refusal Reason Hepatitis A-Hepatitis B Vaccine 1 04/20/09 Given Hepatitis A-Hepatitis B Vaccine 2 09/01/08 Given Hepatitis A-Hepatitis B Vaccine 3 08/03/08 Given Meningococcal Polysaccharide Vaccine 4 07/09/08 Gi kelsey Haemophilus B Conj Vaccine (oldterm) 06/09/08 Give n Pneumococcal Poly (PPV23) (oldterm) 5 05/11/08 Giv en Tet/Diphth/Acel, Pertussis (oldterm) 03/10/08 Give n Zoster Vaccine Live 03/10/08 Given 1Admin Note: twiinrix #3 2Admin Note: twinrix#2 3Admin Note: twinrix#1 4Admin Note: menomune 5Admin Note: pneumovax Medications amLODIPine 5 mg oral tablet 1 tablet = 5 mg, By Mouth, Daily, # 30 tablet, 0 Refills, Maintenance, 06/10/24 10:14:00 AM EDT, Tablet, Partial fill upon patient request if the prescription is for a schedule II opioid drug. Start Date: 06/10/24 Status: Ordered Quantity: 30.0 Unit: tablet Repeat number: 1 Aspirin = 81 mg, By Mouth, Daily, 0 Refills, Maintenance, 07/23/14 7:14:55 AM EDT Start Date: 07/23/14 Status: Ordered Repeat number: 1 cholecalciferol 2000 intl units oral tablet 1 tablet = 2,000 International_Units, By Mouth, Daily, 0 Refills, Maintenance, 01/14/15 7:09:20 PM EST Start Date: 01/14/15 Status: Ordered Repeat number: 1 ferrous sulfate 325 mg oral tablet See Instructions, 1 tablet By Mouth 3 times a week, 0 Refills, Maintenance, 01/14/15 7:07:52 PM EST Start Date: 01/14/15 Status: Ordered Repeat number: 1 Fish Oil oral capsule See Instructions, 300 mg Daily, 0 Refills, Maintenance, 01/14/15 7:05:29 PM EST, Capsule Start Date: 01/14/15 Status: Ordered Repeat number: 1 Flonase 50 mcg/inh nasal spray 2 sprays, Nares, Both, Daily, # 16 Gm, 0 Refills, Maintenance, 01/14/15 7:06:22 PM EST, [place] Start Date: 01/14/15 Status: Ordered Quantity: 16.0 Unit: g Repeat number: 1 furosemide 20 mg oral tablet 1 tablet = 20 mg, By Mouth, Daily, # 30 tablet, 0 Refills, Maintenance, 08/25/14 11:55:22 AM EDT, Tablet Start Date: 08/25/14 Status: Ordered Quantity: 30.0 Unit: tablet Repeat number: 1 hydrochlorothiazide 12.5 mg oral tablet 1 tablet = 12.5 mg, By Mouth, Daily, # 30 tablet, 0 Refills, Maintenance, 08/24/24 4:18:00 PM EDT, Tablet, Partial fill upon patient request if the prescription is for a schedule II opioid drug. Start Date: 08/24/24 Status: Ordered Quantity: 30.0 Unit: tablet Repeat number: 1 LORazepam 1 mg oral tablet TAKE 1 TABLET 2 TIMES DAILYAS NEEDED FOR MRI Start Date: 08/24/24 Status: Ordered Repeat number: 1 Metoprolol Tartrate 25 mg oral tablet 0.5 tablet = 12.5 mg, By Mouth, 2 times a day, TAKE 1/2 TABLET TWICE A DAY Start Date: 06/10/24 Status: Ordered Repeat number: 1 MiraLax Powder 1 pack/packet = 17 Gm, By Mouth, Daily, PRN Constipation, 0 Refills, Maintenance, 06/15/24 1:35:00 PM EDT, Powder, Partial fill upon patient request if the prescription is for a schedule II opioid drug. Start Date: 06/15/24 Status: Ordered Repeat number: 1 Multivitamin See Instructions, By Mouth Daily, 0 Refills, Maintenance, 01/14/15 7:08:39 PM EST Start Date: 01/14/15 Status: Ordered Repeat number: 1 senna 187 mg oral tablet 1 tablet = 8.6 mg, By Mouth, 2 times a day, PRN Constipation, 0 Refills, Maintenance, 06/15/24 1:35:00 PM EDT, Tablet, Partial fill upon patient request if the prescription is for a schedule II opioiddrug. Start Date: 06/15/24 Status: Ordered Repeat number: 1 Synthroid 137 mcg (0.137 mg) oral tablet 1 tablet = 137 mcg, By Mouth, Daily, TAKE 1 TABLET 5 DAYS PER WEEK, AND 2 TABLETS 2 DAYS PER WEEK (sunday and ) Start Date: 06/10/24 Status: Ordered Repeat number: 1 thiamine 100 mg oral tablet 100 mg, By Mouth, Daily, Refills 0, Maintenance, 06/15/24 1:35:00 PM EDT, Partial fill upon patient request if the prescription is for a schedule II opioid drug. Start Date: 06/15/24 Status: Ordered Repeat number: 1 Wegovy (1.7 mg dose) subcutaneous solution = 1.7 mg, Subcutaneous Injection, Every week, in the abdomen, thigh, or upper arm, # 3 mL, 0 Refills, Maintenance, 06/10/24 10:12:00 AM EDT, Solution, Partial fill upon patient request if the prescription is for a schedule II opioid drug. Start Date: 06/10/24 Stop Date: 07/08/24 Status: Ordered Quantity: 3.0 Unit: mL Repeat number: 1 Problem List Condition Confirmation Course Effective Dates Status H ealth Status Informant ROOT DILATION, ASCENDING AORTIC DILTATION Confirmed Active Aortic insufficiency Confirmed Active Deviated septum Confirmed Active HLD (hyperlipidemia) Confirmed Active HTN (hypertension) Confirmed Active Idiopathic thrombocytopenia purpura Confirmed Active Iron deficiency anemia Confirmed Active Thyroid cancer, s/p thyroidectomy Confirmed Active Obesity, actual BMI 37.84 as of 08/11/2014 Confirmed Active Pneumonia Confirmed Active Social History Social History Type Response Smoking Status Former smoker entered on: 08/20/14 Sex Sex Representation Male (finding) Patient Care team information Care Team Personnel Name: Lorna Milligan RN Position: [facility] SN RN Member Role: Primary Care Nurse Name: Raf Shi RN Position: [facility] RN Member Role: Primary Care Nurse Name: Vannessa Nichole RN Position: S RN Member Role: Primary Care Nurse Name: Elda Agrawal Position: [facility] RN Member Role: Primary Care Nurse Name: Em Blanton RN Position: [facility] RN Member Role: Primary Care Nurse Name: Amy Booth RN Position: [facility] RN Member Role: Primary Care Nurse Name: Vandana Desouza RN Position: [facility] RN Member Role: Primary Care Nurse Name: Jose Carlos Wright RN Position: [facility] RN Member Role: Primary Care Nurse Name: Adan Doss Jr, RN Position: [facility] ED RN W/OE and Tasks Member Role: Primary Care Nurse Name: Chalo Ragland RN Position: [facility] RN Member Role: Primary Care Nurse Name: Chilo Orellana MD Position: [facility] Physician - Primary Care Member Role: PCP Address: [address] [place] [address] [phone] Chilo Orellana MD [address] Telecom: Name: Aye Ferreira RN Position: [facility] RN Member Role: Primary Care Nurse Name: Russell Greenwood Position: [facility] RN Member Role: Primary Care Nurse Care Team Related Persons Name: ZA STOCK Insurance Providers Guarantor name: JOSE E CASTROMNISIDRO [facility] Information #: 1 Payer: [facility] PPO Payer Identifier: MELLISSA Member Number: [id number] Group Number: [id number] Subscriber Identifier: [id number] Relationship to Subscriber: self Coverage Type: Medicare PPO Coverage Verification Date: MELLISSA Telecom: Address:
--- NOTE | ~2024-09-26 | XR_ITS ---
EXAMINATION: XR CHEST CLINICAL INFORMATION: J90 - Pleural effusion, not elsewhere classified COMPARISON: July 28, 2024. TECHNIQUE: 2 views of the chest were obtained. FINDINGS: Blunting of the posterior costophrenic angle. Mild prominence of the interstitial markings less conspicuous. No gross consolidation or pneumothorax. Cardiomediastinal silhouette size is normal. Sternal wires. Metallic heart valve prosthesis. Multilevel syndesmophyte formation and marginal osteophyte formation and endplate sclerosis decreased intervertebral disc height. There is a 50% wedge-shaped compression deformities in the mid to lower thoracic spine, unchanged. Kyphotic deformity. XR/XR chest 2V IMPRESSION: Bilateral small pleural effusions. Likely old osteoporotic compression fracture deformities, mid to lower thoracic spine. Electronically signed by: Enrrique Thomas MD 09/26/2024 09:37 AM EDT
--- OUTSIDE RECORDS SUMMARY | 2024-09-26 08:49 | XMS_ITS | Clinical Summary ---
Author Organization [facility] Address [facility] [email or web address] [address] [address] Phone Care Team Providers Care Hospital Coder Name Role Phone Rob Orellana MD Primary Care Provider [phone] Valeriano Ruiz MD Unavailable Micha Leos MD Unavailable [phone] Ricarda Tai MD Unavailable [phone] Allergies Active Allergy Reactions Criticality Noted Date Comments Immune Globulin(Hum),Capr(Igg) 07/13 Medications amLODIPine (NORVASC) 5 MG tablet daily. Active aspirin 81 MG EC tablet daily. Active diazePAM (VALIUM) 10 MG tablet 10 mg nightly at bedtime as needed. 1 Active fluticasone propionate (FLONASE) 50 mcg/actuation nasal spray daily. 1 Active furosemide (LASIX) 20 MG tablet Take 20 mg by mouth daily. 5 Active levothyroxine (SYNTHROID, LEVOTHROID) 137 MCG tablet Take 137 mcg by mouth daily. 3 Active immune globulin, human, (GAMMAGARD LIQUID) 10 % Soln IV injection every 30 (thirty) days. 1 Active rosuvastatin (CRESTOR) 20 MG tablet Take 20 mg by mouth daily. 2 Active metoprolol tartrate (LOPRESSOR) 25 MG tablet Take 12.5 mg by mouth 2 (two) times a day. Active fluticasone propion-salmete roL (ADVAIR HFA) 115-21 mcg/actuation inhaler Inhale 230 mcg/treatment of fluticasone into the lungs 2 (two) times a day. Active levalbuterol (XOPENEX CONCENTRATE) 1.25 mg/0.5 mL nebulizer solution Take 1 ampule by nebulization 2 (two) times a day. Active omega 6-zdw-gzv-fish oil 1,000 mg (120 mg-180 mg) Cap Take 1 capsule by mouth daily. Active multivitamins-m inerals-folic lqxr-tpwzluh-pi tein (COMPLETE SENIOR) 0.4 mg-300 mcg- 250 mcg Tab Take 1 tablet by mouth daily. Active azithromycin (ZITHROMAX) 250 MG tablet Take 250 mg by mouth 3 (three) times a week. Active Family History Medical History Relation Comments Colon cancer Mother Breast cancer Sister Relation Status Comments Mother Sister Social History Tobacco Use Types Packs/Day Years Used Date Smoking Tobacco: Former Cigarettes 0.3 7 0 10/27/1972 - 10/27/1979 Pipe Cigars Smokeless Tobacco: Former Comments:Very light / never inhaled / excellent pulmonary function on spirometry Alcohol Use Standard Drinks/Week Comments Yes 3 (1 standard drink = 0.6 oz pure alcohol) 2 - 3 drinks per week - red wine or bourbon - never both Education Answer Date Recorded Are you interested in more education? Not on guy e 06/24/2022 Are you concerned about learning? Not on file 06/24/2022 No 06/24/2022 No 06/24/2022 Digital Access Answer Date Recorded No 07/25/2022 No 07/25/2022 Reliable internet access at home? Not on file 07/25/2022 Device with a working camera? Not on file Intimate Partner Violence Answer Date R ecorded Are you denied basic needs s uch as food, clothing, or medical care? No 01/08/2023 In the past 12 months have y ou been in a relationship with a person who hurts, threatens, or tries to control you? No 01/08/2023 Are you denied basic needs s uch as food, clothing, or medical care? No 01/08/2023 In the past 12 months have y ou been in a relationship with a person who hurts, threatens, or tries to control you? No 01/08/2023 Sex and Gender Information Value Date Recorded Sex Assigned at Male 07/07/2020 10:33 AM EDT Legal Sex Male 10:11 AM EDT Gender Identity Male 07/07/2020 10:33 AM EDT Sexual Orientation Straight 07/07/2020 10 :33 AM EDT Last Filed Vital Signs Vital Sign Reading Time Taken Comments Blood Pressure 137/79 01/08/2023 2:25 PM EST Pulse 61 01/08/2023 2:25 PM EST Temperature 36.9 C (98.4 F) 01/08/2023 12:41 PM EST Respiratory Rate 18 01/08/2023 2:25 PM EST Oxygen Saturation 96% 01/08/2023 2:25 PM EST Inhaled Oxygen Concentration - - Weight 106.6 kg (235 lb) 01/02/2023 8:31 AM EST Height 177.8 cm (5' 10 ) 01/02/2023 8:31 AM EST Body Mass Index 33.72 01/02/2023 8:31 AM EST Plan of Treatment Health Maintenance Due Date Last Done Comments Adult Td,Tdap Booster 1948 LIPID PANEL 1948 TSH LEVEL 1948 DEPRESSION SCREENING 1960 SMOKING Hx and SMOKELESS TOBACCO SCREENING 01/27/1961 HEPATITIS C SCREENING 01/27/1966 ZOSTER VACCINES (2 of 3) 05/05/2008 03/10/2008 COVID-19 VACCINE ( season) 2023 11/17/2022, 05/05/2022, 11/02/2021, Additional history exists HIB VACCINES Aged Out 06/09/2008 No longer eligi ble based on patient's age to complete this topic MENINGOCOCCAL VACCINES (ACWY) Aged Out 07/09/2008 No longer eligible based on patient's age to complete this topic HEPATITIS A VACCINES Aged Out 04/20/2009, 09/01/2008, 08/03/2008 No longer eligible based on patient's age to complete this topic PNEUMOCOCCAL VACCINES (50+ years) Completed 09/28/2022, 08/23/2016, 05/11/2008 RSV VACCINE Completed 11/01/2022 MENINGOCOCCAL VACCINES (B) Aged Out N o longer eligible based on patient's age to complete this topic Medical Devices Not on file Insurance MEDICARE PART A & B [place] BLUE REPLACEMENT MEDICARE PART A & [place] BL[place] MEDICARE PART A & B MEDICARE PART A & B MEDICARE PART A & [place] BL[place] RE[place] MEDICARE PART A & B MEDICARE PART A & B [facility] MEDICARE PPO BLUE REPLACEMENT MEDICARE PART A & B [facility] MEDICARE PPO BLUE REPLACEMENT MEDICARE PART A & B [place] BLUE REPLACEMENT Care Teams Hospital Coder Relationship Specialty Start Date End Date Rob Orellana MD [address] [place] [id number] PCP - General Internal Medicine 07/07/20 Valeriano Ruiz MD [address] [place] [address] [place] [id number] Pulmonary Disease 01/02/23 Micha Leos MD [address] [place] [address] [place] [id number] Cardiology 01/02/23 Ricarda Tai MD [address] [place] [address] [place] [address] [email or web address] Gastroenterology 01/09/23 Additional Source Comments The information contained in this document represents components of the legal health record. It is not the complete legal health record.[facility]
--- OUTSIDE RECORDS SUMMARY | 2024-09-26 08:49 | XMS_ITS ---
Author Name Nirmal العلي Address Unknown Organization [facility] Team Providers Care Lathe Puller Name Role Phone Unavailable Primary Care Physician Unavailab le History Of Present Illness This is a 74 year old male who is an established patient who is being seen for an evaluation of skin lesions, located on the body throughout. The lesions are asymptomatic. The lesions have been present for years. He also presents for education and counseling about sun exposure, evaluation for suspicious growths, and evaluation of current nevi. His history is significant for actinic keratoses. Pt has areas of concern on scalp as he has had AKs in the past and lesion on right lateral cheek and olecranon bursitis in right elbow (advised needs ortho consult) Medications Medication Generic Name RxNorm Strength Strength Unit Route Dose Dose Form Frequency Date Started Date Ended Status Indication Sig azelaic acid azelaic acid 6142237 15 % Topica l gel 01/24/20 22 suspend ed Appl y to area s of dago cea on face twic e mikala y. econazole econazol e 452856 1 % Topica l cream BID 01/27/20 21 suspend ed Appl y twic e mikala y to rash on groi n unti l reso lved . fluorouraci l fluorour acil 245816 5 % Topica l thin layer cream bid 03/21/19 24 active Appl y to affe cted area s on scal p BID for 2 week s, expe ct redn ess and irri chet on. Avoi d sun expo sure metronidazo le metronid azole 260583 0.75 % Topica l cream 01/31/20 22 suspend ed Appl y twic e mikala y to dago cea fluticasone propionate 7458130 50 mcg/actua tion Intran tomy 1 spray , suspe nsion prn active allergies amlodipine amlodipi ne 5 mg Oral 1 table t qd active BP amoxicillin -pot clavulanate 778608 875-125 mg Oral table t prn suspend ed prior to any procedures cephalexin cephalex in 569872 500 mg Oral capsu le 01/24/20 22 suspend ed Take 4 caps ules once , 1 hour prio r to visi t for skin biop sy fluoxetine 419504 10 mg Oral 1 capsu le prn active anxiety hydrochloro thiazide hydrochl orothiaz della 12.5 mg Oral 1 table t qd active levofloxaci n 457683 500 mg Oral table t suspend ed metoprolol succinate metoprol ol succinat e 12.5 mg Oral 1 Table t, Exten ded Relea se 24 hr bid active rosuvastati n rosuvast atin 20 mg Oral 1 table t qd active Synthroid 797197 137 mcg Oral 1 table t qd active thyroid Advair Diskus NULL 12/29/19 15 active amLODIPine Besylate NULL 0 17 active Amoxicillin NULL 01/16/20 17 active Avapro NULL 10/13/19 10 active Carvedilol NULL 12/29/19 15 active Chlorhexidi ne Gluconate NULL 15 active Crestor NULL 10/13/19 10 suspend ed Fluticasone Propionate NULL 12/28 15 active Fluzone High-Dose NULL 17 active FLUZONE HIGH-DOSE PF 2015 JUAREZ NULL 12/29/19 15 active Furosemide NULL 01/26/20 15 suspend ed Gamunex-C NULL 01/16/20 17 suspend ed Ketoconazol e NULL 01/14/20 14 suspend ed Lasix NULL 01/16/20 17 suspend ed Lisinopril NULL 08/29/19 07 active Mupirocin NULL 12/29/19 15 active Niaspan NULL 08/29/19 07 active oxyCODONE-A cetaminophe n NULL 12/29/19 15 active Pantoprazol e Sodium NULL 0 15 active Pravachol NULL 08/29/19 07 active Prevnar 13 NULL 01/16/20 17 active PROzac NULL 10/13/19 10 active Rosuvastati n Calcium NULL 17 active Suprax NULL 12/29/19 15 active Synthroid NULL 12/29/19 15 active traMADol HCl NULL 12/29/19 15 active Problems Problem Code Type Status Date of Diagnosis Date of Resolution Actinic keratosis (disorder) ( SNOMED) Diagnosis active 09/22/2024 Inflammatory dermatosis (disorder) 347597123( SNOMED) Diagnosis active 09/22/2024 Seborrheic keratosis (disorder) 536782480( SNOMED) Diagnosis active 09/22/2024 Bursitis of olecranon of right elbow (disorder) 0961696509 06701(SNOM ED) Diagnosis active 09/22/2024 Disorder of pigmentation (disorder) 310230979( SNOMED) Diagnosis active 09/22/2024 Hemangioma of skin and subcutaneous tissue (disorder) 259518782( SNOMED) Diagnosis active 09/22/2024 Inflamed seborrheic keratosis (disorder) 128235072( SNOMED) Diagnosis active 01/30/2024 Actinic keratosis (disorder) ( SNOMED) Diagnosis active 01/30/2024 Actinic keratosis (disorder) ( SNOMED) Diagnosis active 09/19/2023 Seborrheic keratosis (disorder) 076734526( SNOMED) Diagnosis active 09/19/2023 Actinic keratosis (disorder) ( SNOMED) Diagnosis active 03/21/2023 Seborrheic keratosis (disorder) 395537842( SNOMED) Diagnosis active 03/21/2023 Neoplasm of uncertain behavior of skin (disorder) 91397224(S NOMED) Diagnosis active 01/30/2022 Rosacea (disorder) 254335413( SNOMED) Diagnosis active 01/30/2022 Neoplasm of uncertain behavior of skin (disorder) 28116027(S NOMED) Diagnosis active 01/23/2022 Actinic keratosis (disorder) ( SNOMED) Diagnosis active 01/23/2022 Rosacea (disorder) 696358049( SNOMED) Diagnosis active 01/23/2022 Acute conjunctivitis (disorder) 33323047(S NOMED) Diagnosis active 01/23/2022 Benign neoplasm of skin of left lower limb (disorder) 9060682160 763152(SNO MED) Diagnosis active 01/23/2022 Melanocytic nevus (disorder) 352882957( SNOMED) Diagnosis active 01/23/2022 Seborrheic keratosis (disorder) 359648546( SNOMED) Diagnosis active 01/23/2022 Hemangioma of skin and subcutaneous tissue (disorder) 331358524( SNOMED) Diagnosis active 01/23/2022 Benign neoplasm of skin of trunk (disorder) 55945705(S NOMED) Diagnosis active 01/23/2022 Actinic keratosis (disorder) 920040129( SNOMED) Diagnosis active 01/26/2021 Tinea cruris (disorder) 691625874( SNOMED) Diagnosis active 01/26/2021 Neoplasm of uncertain behavior of skin (disorder) 74686037(S NOMED) Diagnosis active 01/26/2021 Melanocytic nevus (disorder) 885774987( SNOMED) Diagnosis active 01/26/2021 Seborrheic keratosis (disorder) 580676785( SNOMED) Diagnosis active 01/26/2021 Hemangioma of skin and subcutaneous tissue (disorder) 785951439( SNOMED) Diagnosis active 01/26/2021 Benign neoplasm of skin of trunk (disorder) 97154364(S NOMED) Diagnosis active 01/26/2021 Benign neoplasm of skin of left lower limb (disorder) 1674480506 178702(SNO MED) Diagnosis active 01/26/2021 Inflamed seborrheic keratosis (disorder) 773106200( SNOMED) Diagnosis active 01/26/2021 Actinic keratosis L57.0(ICD- 10) Diagnosis active 01/07/2020 Melanocytic nevi, unspecified D22.9(ICD- 10) Diagnosis active 01/07/2020 Other seborrheic keratosis L82.1(ICD- 10) Diagnosis active 01/07/2020 Hemangioma of skin and subcutaneous tissue D18.01(ICD -10) Diagnosis active 01/07/2020 Other benign neoplasm of skin of trunk D23.5(ICD- 10) Diagnosis active 01/07/2020 Other benign neoplasm of skin of left lower limb, including hip D23.72(ICD -10) Diagnosis active 01/07/2020 Neoplasm of uncertain behavior of skin D48.5(ICD- 10) Diagnosis active 01/07/2020 Other benign neoplasm of skin of trunk D23.5(ICD- 10) Diagnosis active 09/05/2019 Dermatitis, unspecified L30.9(ICD- 10) Diagnosis active 01/30/2019 Allergic contact dermatitis, unspecified cause L23.9(ICD- 10) Diagnosis active 12/16/2018 Other seborrheic keratosis L82.1(ICD- 10) Diagnosis active 12/16/2018 Hemangioma of skin and subcutaneous tissue D18.01(ICD -10) Diagnosis active 12/16/2018 History of pneumonia (situation) 736480889( SNOMED) Diagnosis active 12/31/2017 Neoplasm of uncertain behavior of skin (disorder) 76918771(S NOMED) Diagnosis active 01/15/2017 Other specified health status Z78.9(ICD- 10) Diagnosis active 01/25/2015 Symptom of skin and integumentary tissue (finding) 840624930( SNOMED) Diagnosis active 01/13/2014 Hypothyroidism (disorder) 62361577(S NOMED) Problem active Hearing loss (disorder) 22062711(S NOMED) Problem active Increased blood pressure (finding) 45420178(S NOMED) Problem active Hypercholesterolemia (disorder) 59778798(S NOMED) Problem active Hypothyroidism (disorder) 03620156(S NOMED) Problem active Common variable agammaglobulinemia (disorder) 67430545(S NOMED) Problem active Hyperparathyroidism (disorder) 16492252(S NOMED) Problem active History of skin disorder (situation) 916175927( SNOMED) Problem active Chronic bronchitis (disorder) 77339451(S NOMED) Problem active Anxiety disorder (disorder) 493759004( SNOMED) Problem active Results No data Encounters Service provided at [address], [address], [place], [place] [id number]. Office phone number is [phone]. Office fax number is [phone]. Encounter Diagnosis Location Date / Time Type Hypertrophic Actinic Keratos is (L57.0)Diffuse Actinic Keratoses (L57.0)Dermatitis Unspecified (L30.9)Seborrheic Keratoses (L82.1)Olecranon Bursitis (M70.21)Lentigines (L81.4)Gonzalez Angiomas (D18.01) [facility] 09/22/2024 13:40:00 [facility] [id number] Reason For Referral No data Procedures Procedure Date Documentation of current medications (pr ocedure) 09/22/2024 12:00 am [place] Destruction of premalignant skin lesion (procedure) 09/22/2024 12:00 am UTC Destruction of premalignant skin lesion (procedure) 01/30/2024 12:00 am UTC Shave excision of skin lesion (procedure ) 01/30/2024 12:00 am UTC Destruction of premalignant skin lesion (procedure) 09/19/2023 12:00 am UTC Shave biopsy (procedure) 01/30/2022 12:0 0 am UTC Cryotherapy of skin lesion with liquid n itrogen (procedure) 01/23/2022 12:00 am UTC Cryotherapy of skin lesion with liquid n itrogen (procedure) 01/26/2021 12:00 am UTC Cryotherapy of skin lesion with liquid n itrogen (procedure) 01/07/2020 12:00 am UTC Cryotherapy of skin lesion with liquid n itrogen (procedure) 09/05/2019 12:00 am UTC History of cholecystectomy (situation) Surgical biopsy of skin (procedure) History of tissue graft heart valve repl acement (situation) History of cholecystectomy (situation) History of tissue graft heart valve repl acement (situation) Surgical biopsy of skin (procedure) History of tissue graft heart valve repl acement (situation) Surgical biopsy of skin (procedure) History of cholecystectomy (situation) History of tissue graft heart valve repl acement (situation) History of cholecystectomy (situation) Surgical biopsy of skin (procedure) Surgical biopsy of skin (procedure) History of tissue graft heart valve repl acement (situation) History of cholecystectomy (situation) Surgical biopsy of skin (procedure) History of cholecystectomy (situation) History of tissue graft heart valve repl acement (situation) History of cholecystectomy (situation) History of tissue graft heart valve repl acement (situation) Surgical biopsy of skin (procedure) Surgical biopsy of skin (procedure) History of cholecystectomy (situation) History of tissue graft heart valve repl acement (situation) History of tissue graft heart valve repl acement (situation) Surgical biopsy of skin (procedure) History of cholecystectomy (situation) History of cholecystectomy (situation) History of tissue graft heart valve repl acement (situation) Surgical biopsy of skin (procedure) History of tissue graft heart valve repl acement (situation) Surgical biopsy of skin (procedure) History of cholecystectomy (situation) Surgical biopsy of skin (procedure) History of cholecystectomy (situation) History of tissue graft heart valve repl acement (situation) Review Of Systems Provider reviewed on Sep 22, 2024.A focused review of systems was performed including Allergic / Immunologic, Hematologic / Lymphatic, and Integumentary and was notable for immunosuppression.No Problems With Healing, No Problems With Scarring (hypertrophic Or Keloid), And No Problems With Bleeding. Assessment 1.Hypertrophic Actinic KeratosisCounselingLiquid Nitrogen: right cheek; right pentecostal; Application Tool - Cry-AC; Number of freeze-thaw Cycles - 2 freeze-thaw cycles.2.Diffuse Actinic Keratoses, Status: ImprovedCounseling3.Dermatitis Unspecified, Status: ResolvingCounseling4.Seborrheic KeratosesCouns eling5.Olecranon BursitisCounseling6.LentiginesCounseling7.Gonzalez AngiomasCounseling Plan of Care Future visit for 09/22/2025 - Follow up in 1 year for: Skin Check. Other Instructions: 10CSE. OtherInstructions: 10CSE. Code Detail Instructions 421448 fluorouracil 5 % topical cream A pply to affected areas on scalp BID for 2 weeks, expect redness and irritation. Avoid sun exposure 591455 metronidazole 0.75 % topical cre am Apply twice daily to rosacea 441709 cephalexin 500 mg capsule Take 4 capsules once, 1 hour prior to visit for skin biopsy 1566941 azelaic acid 15 % topical gel Ap ply to areas of rosacea on face twice daily. 982427 econazole 1 % topical cream Appl y twice daily to rash on groin until resolved. Instructions * I counseled the patient regarding the following:Skin Care: Sun protective clothing and broad spectrum sunscreen can prevent the formation of Actinic Keratoses. AKs can resolve with cryotherapy, photodynamic therapy (?blue light?), imiquimod cream, topical fluorouracil, and Picato gel.Expectations: A ctinic Keratoses are precancerous proliferations that occur within sun damaged skin. If untreated, a small subset of AKs can develop into Squamous Cell Carcinoma.Contact Office if: If AKs fail to resolve despite treatment, or if you develop a side effect from therapy, such as unbearable crusting, scabbing, redness and tenderness.Call if worseningI recommended the following: Broad Spectrum Sunscreen SPF 30+ * I counseled the patient regarding the following:Skin Care: Sun protective clothing and broad spectrum sunscreen can prevent the formation of Actinic Keratoses. AKs can resolve with cryotherapy, photodynamic therapy (?blue light?), imiquimod cream, topical fluorouracil, and Picato gel.Expectations: A ctinic Keratoses are precancerous proliferations that occur within sun damaged skin. If untreated, a small subset of AKs can develop into Squamous Cell Carcinoma.Contact Office if: If AKs fail to resolve despite treatment, or if you develop a side effect from therapy, such as unbearable crusting, scabbing, redness and tenderness.Call if worseningI recommended the following: Broad Spectrum Sunscreen SPF 30+ * I counseled the patient regarding the following:Skin Care: Erythema usually require no treatment.Expectations: Erythema represents redness of the skin. It can persist after inflammation of the skin.Contact office if: Your Erythema worsens or becomes symptomatic. * I counseled the patient regarding the following:Skin Care: Seborrheic Keratoses are benign. No treatment is necessary.Expectations: Seborrheic Keratoses are benign warty growths. Patients get more ofthem with time. * I counseled the patient regarding the following:Care: Pain from bursitis can be managed with NSAIDs. Persistant bursitis should be evaluated by a change advisor or an orthopaedic surgeon.Expectations: Olecranon bursitis is caused by inflammation of the bursa overlying the olecranon process of the ul na. The inflammation is usually caused by repetitive trauma to the elbow. Rarely, it is caused by infection.Bursitis becomes debilitating. * I counseled the patient regarding the following:Skin Care: Lentigines can resolve with broad spectrum sunscreen, sun avoidance, bleaching creams, retinoids, chemical peels and laser.Expectations: Lentigines are benign pigmented lesions that occur on sun-exposed and sun-damaged skin.I recommended the following: Broad Spectrum Sunscreen SPF 30+ * I counseled the patient regarding the following:Skin Care: Gonzalez Angiomas can resolve with lasers or electrodesiccation.Expectations: Gonzalez Angiomas are benign vascular growths. No treatment is necessary. Social History Code Activity Start Date End Date 7944743 (SNOMED) Former smoker Sex male Sexual orientation Unspecified Gender identity Unspecified Vital Signs No data
--- OUTSIDE RECORDS SUMMARY | 2024-09-26 08:50 | XMS_ITS | Continuity of Care Document ---
Author Organization [facility] [address] [place] [address] Phone [phone] Care Team Providers Care Public Health Dietitian Name Role Phone Chilo Orellana M.D. Care Team Information Recei shawn [phone] Problems Active Problems Provider Date Essential hypertension Nolan Vines Onset: 03/08/2022 Dyslipidemia Stephanie Martinez M.D. Ons et: 03/08/2022 Obesity Stephanie Martinez M.D. Ons et: 03/08/2022 Hyperparathyroidism Stephanie Martinez M.D. Onset: 03/08/2022 Left ventricular hypertrophy Stephanie maher M.D. Onset: 03/08/2022 Immune thrombocytopenia Stephanie Martinez M.D. 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 Onset: 03/08/2022 Papillary thyroid carcinoma Stephanie salvador M.D. Onset: 03/08/2022 Prediabetes Stephanie Martinez M.D. Ons et: 03/08/2022 Cyst of kidney Stephanie Martinez M.D. Ons et: 03/08/2022 Atrial premature complex Stephanie Martinez M.D. 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 Onset: 03/08/2022 Social History Type Date Description Comments Sex Male Sex Unknown Lives With Spouse Occupation physician Work Status Part-Time Employment ETOH Use Occasionally consumes alcoho l Tobacco Use Start: Unknown End: Patient is a former smoker Allergies and adverse reactions Active Allergies Criticality Reaction Severity Comments Date Escitalopram Unable to assess criticality sedation 10/23/2023 Inactive Allergies No Known Drug Allergies 0 09/05/2021 Medications Active Medications SIG Qnty Indications Order ing Provider Date Cyzvqe05lj Capsules 1 every a.m. Siobhan Martinez M.D. 10/22/2023 [id number] Tablets Take 1 Tablet 5 Days Per Week, And 2 Tablets 2 Days Per Week 108tabs Stephanie Martinez M.D. 12/14/2021 Metoprolol Frzhkvhq67lp Tablets 1/2 bid 60tabs Unknown Xruixjhhfl05hy Tablets take 1 tablet by mouth every day as directed 90tabs Unknown Rosuvastatin Eunyfrw36qy Tablets Take 1 Tablet By Mouth Every Day Chilo Orellana M.D. Amlodipine Rsxzfubk3nt Tablets 1 by mouth every day Stephanie Martinez M.D. Aspirin Ec Low Kwxh74sa Tablets DR 1 by mouth every day Stephanie Martinez M.D. Vitamin L520lde (1000 Ut) Capsules 2 by mouth every day 100caps Stephanie Martinez M.D. Multivitamin Adults 50+Adlt 50+ Tablets 1 by mouth every day Stephanie Martinez M.D. Fish Mhh8660hr Capsules 1 by mouth once a day Stephanie Martinez M.D. Txopbi1zv Tablets 1-2 qhs prn Karen Martinez M.D. Wegovy1.7mg/0.75ML Solution Auto-Inject inject 1.7 mg weekly as directed Unknown Duloxetine NUH71kz Caps DR Part 1 by mouth every day Unknown Ktxzrrdkg9US/10ML Solution Unknown Vital Signs Date Vital Result Comment 04/21/2024 9:40am BP Systolic 114 mmHg BP Diastolic 62 mmHg Results Test Acquired Date Facility Test Result H/L Range Note Thyroglobulin by LCMS 11/28/2023 [facility] Thyroglobulin by LCMS 0.2 ng/mL Low 1.4-29.2 1 Hemoglobin A1c 10/22/2023 [facility] Hemoglobin A1c 5.6 % 4.8-5.6 2 TSH Rfx on Abnormal to Free T4 10/22/2023 [facility] TSH RFX On Abnormal To Free T4 0.150 uIU/mL Low 0.450-4. 500 T4,Free (Direct) 1.59 ng/dL 0.82-1.7 7 Tgab+Thyroglobuli n, [place] Or LCMS 10/22/2023 [facility] Thyroglobulin Antibody 14.9 IU/mL High 0.0-0.9 3 Thyroglobulin b y LCMS TNP ng/mL 4 Request Problem 10/22/2023 [facility] Request Problem TNP 5 TSH With Reflex To FT4 03/19/2023 [facility] TSH With Reflex To FT4 0.39 uIU/mL Low (0.4-4.2 ) Free T4 03/19/2023 [facility] Free T4 1.56 ng/dL (0.70-1. 80) TSH With Reflex To FT4 09/13/2022 [facility] TSH With Reflex To FT4 0.58 uIU/mL (0.4-4.2 ) Thyroglobulin,Berta or MRKR W/RFLX 09/13/2022 [facility] Thyroglobulin,Tu mor MRKR W/RFLX 22.3 High 6 Hemoglobin A1c 09/13/2022 [facility] Hemoglobin A1c 5.5 % (4.0-5.6 ) 7 Thyroglobulin Tumor Marker Enterostomal Therapy Nurse 09/13/2022 [facility] Thyroglobulin Tumor Marker Enterostomal Therapy Nurse <0.2 Low 8 TSH With Reflex To FT4 03/08/2022 [facility] TSH With Reflex To FT4 1.10 uIU/mL (0.4-4.2 ) Albumin 03/08/2022 [facility] Albumin 4.0 GM/DL (3.4-4.8 ) 25Oh Vitamin D 03/08/2022 [facility] 25Oh Vitamin D 47.4 NG/ML (20-50) Calcium 03/08/2022 [facility] Calcium 10.5 mg/dL (8.6-10. 5) PTH, Intact 03/08/2022 [facility] PTH, Intact 98 pg/mL High (15-65) Creatinine 03/08/2022 [facility] Creatinine 0.6 mg/dL Low (0.7-1.2 ) Estimated GFR Creatinine 99 ML/MIN/1. 73M2 TSH 11/21/2021 [facility] TSH 0.45 uIU/mL (0.4-4.2 ) Hemoglobin A1c 10/08/2021 [facility] Hemoglobin A1c 5.7 % High (4.0-5.6 ) 9 Free T4 10/08/2021 [facility] Free T4 1.89 ng/dL High (0.70-1. 80) TSH 10/08/2021 [facility] TSH 0.08 uIU/mL Low (0.4-4.2 ) Thyroglobulin,Berta or MRKR W/RFLX 10/08/2021 [facility] Thyroglobulin,Tu mor MRKR W/RFLX 23.4 High 10 Thyroglobulin Tumor Marker Enterostomal Therapy Nurse 10/08/2021 [facility] Thyroglobulin Tumor Marker Enterostomal Therapy Nurse <0.2 Low 11 1 This test was develo ped and its performance characteristics determined by [employer]. It has not been cleared or approved by the Food and Drug Administration. According to the National Academy of Clinical Biochemistry, the reference interval for Thyroglobulin (TG) should be related to euthyroid patients and not for patients who underwent thyroidectomy. TG reference intervals for these patients depend on the residual mass of the thyroid tissue left after surgery. Establishing a post-operative baseline is recommended. The assay limit of quantitation is 0.2 ng/mL According to the National Academy of Clinical Biochemistry, the reference interval for Thyroglobulin (TG) should be related to euthyroid patients and not for patients who underwent thyroidectomy. TG reference intervals for these patients depend on the residual mass of the thyroid tissue left after surgery. Establishing a post-operative baseline is recommended. The assay limit of quantitation is 0.2 ng/mL 2 Prediabetes: 5.7 - 6 .4 Diabetes: >6.4 Glycemic control for adults with diabetes: <7.0 3 Thyroglobulin Antibo dy measured by [facility] [employer] It should be noted that the presence of thyroglobulin antibodies may not be pathogenic nor diagnostic, especially at very low levels. The assay supervisor purification has found that four percent of individuals without evidence of thyroid disease or autoimmunity will have positive TgAb levels up to 4 IU/mL. 4 Test not performed. No specimen received. This test was developed and its performance characteristics determined by [employer]. It has not been cleared or approved by the Food and Drug Administration. According to the National Academy of Clinical Biochemistry, the reference interval for Thyroglobulin (TG) should be related to euthyroid patients and not for patients who underwent thyroidectomy. TG reference intervals for these patients depend on the residual mass of the thyroid tissue left after surgery. Establishing a post-operative baseline is recommended. The assay limit of quantitation is 0.2 ng/mL 5 Test not performed. No specimen received. TEST: [id number] Thyroglobulin by LCMS Panel: [id number] Reference range: 0.0 to 0.9 Unit: IU/mL (NOTE) Thyroglobulin Antibody measured by [facility] Test performed by [facility], [address] [place] [id number] MONITORING: In known diabetic patients, hemoglobin A1c targets should be discussed with health care provider. DIAGNOSTIC USE: The [place] Diabetes Association (ADA) and the World Health Organization (WHO) recommend the use of HbA1c to diagnose diabetes using a threshold of 6.5%. Patients who have an HbA1c between 5.7% and 6.4% are considered at increased risk for developing diabetes in the future. CAUTION: Falsely low HbA1c results may be observed in patients with hemolytic anemia, homozygous forms of abnormal hemoglobin (e.g. SS, CC, SC), , recent blood loss or hemoglobin F greater than 7%. Fructosamine may be used as an alternate test in these cases. REFERENCE: ADA: Standards of Medical Care in Diabetes 2020, The Journal of Clinical and Applied Research and Education Volume 43, Supplement 1 8 Reference range: 1.4 to 29.2 Unit: ng/mL (NOTE) This test was developed and its performance characteristics determined by [employer]. It has not been cleared or approved by the Food and Drug Administration. According to the National Academy of Clinical Biochemistry, the reference interval for Thyroglobulin (TG) should be related to euthyroid patients and not for patients who underwent thyroidectomy. TG reference intervals for these patients depend on the residual mass of the thyroid tissue left after surgery. Establishing a post-operative baseline is recommended. The assay limit of quantitation is 0.2 ng/mL Test performed at [facility] [id number] MONITORING: In known diabetic patients, hemoglobin A1c targets should be discussed with health care provider. DIAGNOSTIC USE: The [place] Diabetes Association (ADA) and the World Health Organization (WHO) recommend the use of HbA1c to diagnose diabetes using a threshold of 6.5%. Patients who have an HbA1c between 5.7% and 6.4% are considered at increased risk for developing diabetes in the future. CAUTION: Falsely low HbA1c results may be observed in patients with hemolytic anemia, homozygous forms of abnormal hemoglobin (e.g. SS, CC, SC), , recent blood loss or hemoglobin F greater than 7%. Fructosamine may be used as an alternate test in these cases. REFERENCE: ADA: Standards of Medical Care in Diabetes 2020, The Journal of Clinical and Applied Research and Education Volume 43, Supplement 1 10 Reference range: 0.0 to 0.9 Unit: IU/mL (NOTE) Thyroglobulin Antibody measured by [facility] Test performed by [facility], [address] [place] [id number] 11 Reference range: 1.4 to 29.2 Unit: ng/mL (NOTE) This test was developed and its performance characteristics determined by [facility]. It has not been cleared or approved by the Food and Drug Administration. According to the National Academy of Clinical Biochemistry, the reference interval for Thyroglobulin (TG) should be related to euthyroid patients and not for patients who underwent thyroidectomy. TG reference intervals for these patients depend on the residual mass of the thyroid tissue left after surgery. Establishing a post-operative baseline is recommended. The assay limit of quantitation is 0.2 ng/mL Test performed at [facility] [address] Procedures Date Code Description Status 10/22/2023 76939 Collection Of Venous Blood B y Venipuncture Completed 03/19/2023 50370 Collection Of Venous Blood B y Venipuncture Completed 03/08/2022 74638 Collection Of Venous Blood B y Venipuncture Completed Medical Devices Description No Information Available Encounters Type Date Location Provider Dx Diagnosis Office Visit 04/21/2024 8:45a Main Office Stephanie Martinez M.D. C73 Malignant neoplasm of thyroid gland E21.3 Hyperparathyroidism, unspecified Assessments Date Code Description Provider 04/21/2024 C73 Malignant neoplasm of thyroi d gland Stephanie Martinez M.D. 04/21/2024 E21.3 Hyperparathyroidism, unspeci fied Stephanie Martinez M.D. Plan of Treatment Future Appointment(s):* 10/20/2024 8:30 am - Stephanie Martinez M.D. at Main Office 03/19/2023 - Stephanie Martinez M.D.* C73 Malignant neoplasm of thyroid gland * R73.03 Prediabetes * E21.3 Hyperparathyroidism, unspecified Functional Status Description No Information Available Mental Status Description No Information Available Referrals Description No Information Available
--- OUTSIDE RECORDS SUMMARY | 2024-09-26 08:50 | XMS_ITS | Clinical Summary ---
Author Organization [facility] Address [address] [place] [id number] Care Team Providers Care Production Potter Name Role Phone Chilo Orellana MD Primary Care Provider [phone] Allergies Active Allergy Reactions Criticality Noted Date Comments Escitalopram Other (See Comments) Medium 11/21/2023 Other reaction(s): sedation Medications Medication Sig Dispensed Refills Start Date End Date Status levothyroxine (SYNTHROID) tablet 137 mcg Take 1 tablet (137 mcg total) by mouth every morning on an empty stomach. MWF takes 1 tab, Sunday and takes 2 tabs 0 Active amLODIPine (NORVASC) tablet 5 mg Take 1 tablet (5 mg total) by mouth daily. 0 Active aspirin EC 81 MG tablet Take 1 tablet (81 mg total) by mouth daily. 0 Active furosemide (LASIX) 20 MG tablet Take 1 tablet (20 mg total) by mouth 2 (two) times a day. 0 Active metoprolol succinate (TOPROL-XL) 24 hr split tablet 12.5 mg Take 1 split tablet (12.5 mg total) by mouth 2 (two) times a day. 0 Active rosuvastatin (CRESTOR) tablet 20 mg Take 1 tablet (20 mg total) by mouth daily. 0 Active fluticasone (FLONASE) 50 MCG/ACT nasal spray spray/apply 1 spray in each nostril daily. 0 Active Cholecalciferol (Vitamin D) 50 MCG (2000 UT) CAPS Take 1 capsule by mouth daily. 0 Active [place]-3 Fatty Acids (Fish Oil) 1000 MG CAPS Take 1 capsule by mouth 2 (two) times a day. 0 Active Ascorbic Acid ER 1000 MG TBCR Take 1 tablet (1,000 mg total) by mouth daily. 0 Active Multiple Vitamin (MULTI VITAMIN DAILY PO) Take 1 tablet by mouth daily. 0 Active Trelegy Ellipta 200-62.5-25 MCG/ACT AEPB 0 01/23/2022 Active amoxicillin-clavulanat e (AUGMENTIN) 875-125 MG per tablet 0 08/26/2022 Active azithromycin (ZITHROMAX) 250 MG tablet 0 08/26/2022 Active Advair HFA 115-21 MCG/ACT inhaler 0 10/24/2022 Active levalbuterol (XOPENEX) 1.25 MG/0.5ML nebulizer solution Inhale 0.5 mL (1.25 mg total) into the lungs. 0 Active escitalopram (LEXAPRO) 5 MG tablet 0 05/30/2023 Active Wegovy 0.5 MG/0.5ML subcutaneous auto-injector 0 06/30/2023 Active FLUoxetine (PROzac) 20 MG capsule Take 1 capsule (20 mg total) by mouth daily. 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 Social History Tobacco Use Types Packs/Day Years Used Date Smoking Tobacco: Never Assessed Sex and Gender Information Value Date Recorded Sex Assigned at Male 09/23/2021 10:34 AM EDT Gender Identity Not on file Sexual Orientation Not on file Job Start Date Occupation Industry Not on file Not on file Not on file Last Filed Vital Signs Vital Sign Reading Time Taken Comments Blood Pressure 119/64 12/19/2023 8:24 AM EDT Pulse 58 12/19/2023 8:24 AM EDT Temperature 36.2 C (97.2 F) 12/19/2023 8:24 AM EDT Respiratory Rate 18 12/19/2023 8:24 AM EDT Oxygen Saturation 100% 12/19/2023 8:24 AM EDT Inhaled Oxygen Concentration - - Weight 103.7 kg (228 lb 9.6 oz) 12/19/2023 8:20 AM EDT Height 177.8 cm (5' 10 ) 12/19/2023 8:20 AM EDT Body Mass Index 32.8 12/19/2023 8:20 AM EDT Plan of Treatment Health Maintenance Due Date Last Done Comments Hepatitis C Screening 1950 Depression Screening 1960 BMI Counseling 01/27/1966 Preventative Health Evaluation 01/27/1966 DTap / Tdap / Td (1 - Tdap) 01/27/1967 Shingrix-Zoster Vaccine (1 o f 2) 01/27/1967 Pneumococcal Vaccine (2 of 2 - PCV) 05/11/2009 05/11/2008 Fall Risk Assessment 01/27/2013 COVID-19 Vaccine (2 - Pfizer risk series) 04/14/2020 03/24/2020 RSV Adult > 60+ Yrs or (1 - 1-dose 75+ series) 01/27/2023 Influenza Vaccine (#1) 2024 Hepatitis B Vaccines Completed 04/20/2009, 09/01/2008, 08/03/2008 RSV Ped < 20 months Aged Out No longe r eligible based on patient's age to complete this topic Care Teams Production Potter Relationship Specialty Start Date End Date Chilo Orellana MD [address] [place] [id number] PCP - General Internal Medicine 10/15/18
--- OUTSIDE RECORDS SUMMARY | 2024-09-26 08:50 | XMS_ITS | Clinical Summary ---
Author Organization [facility] Address [address] [place] [address] Phone Care Team Providers Care Hoseman Name Role Phone Chilo Orellana MD Primary Care Provider [phone] Allergies Active Allergy Reactions Criticality Noted Date Comments Escitalopram Other,Fatigue Medium 11/21/2023 Other reaction(s): sedation Acetaminophen Liver function tests abnormal 09/04/2024 Medications multivitamin (MULTIPLE VITAMINS ORAL) Route: Take 1 tablet by mouth daily. - Oral 015 Active rosuvastatin (CRESTOR) 40 mg tablet Take 1 tablet (40 mg total) by mouth 1 (one) time each day. 025 Active fluticasone (VERAMYST) 27.5 mcg/actuation nasal spray Administer 2 sprays into each nostril 1 (one) time each day. 025 Active amLODIPine (NORVASC) 5 mg tablet Take 1 tablet (5 mg total) by mouth 1 (one) time each day. 30 each 025 Active FLUoxetine (PROzac) 20 mg capsule Take 1 capsule (20 mg total) by mouth 1 (one) time each day. 30 each 025 Active levothyroxine (SYNTHROID, LEVOTHROID) 137 mcg tablet Take 1 tablet (137 mcg total) by mouth 1 (one) time each day before breakfast. 025 Active levothyroxine (SYNTHROID, LEVOTHROID) 137 mcg tablet Take 2 tablets (274 mcg total) by mouth 1 (one) time each day before breakfast. 025 Active metoprolol tartrate (LOPRESSOR) 25 mg tablet TAKE 1/2 TABLET TWICE A DAY 90 tablet 2 025 Active vancomycin (VANCOCIN) 1.5 gram injection Infuse 1,500 mg into a venous catheter. 025 Active hydroCHLOROthia zide (MICROZIDE) 12.5 mg capsuleIndicati ons:Primary hypertension Take 1 capsule (12.5 mg total) by mouth 1 (one) time each day in the morning. 90 each 3 025 2025 Active furosemide (LASIX) 20 mg tablet TAKE 1 TABLET DAILY 90 tablet 2 Active amoxicillin (AMOXIL) 500 mg capsule Take 4 capsules (2,000 mg total) by mouth See administration instructions. 4 tablets 1 hour prior to dental work 12 capsule 1 025 Active furosemide (LASIX) 20 mg tablet Take 1 tablet (20 mg total) by mouth 1 (one) time each day. 30 each 025 2024 Discontinued amoxicillin-cla vulanate (AUGMENTIN) 875-125 mg per tablet Take 1 tablet by mouth. 025 2024 Active Problems Problem Noted Date Diagnosed Date Pure hypercholesterolemia 06/16/2024 Primary hypertension 06/16/2024 Discitis of thoracic region 06/16/2024 Other acute osteomyelitis, m ultiple sites ([facility] V24, [facility] V28) 06/16/2024 Osteomyelitis ([facility] V24, [facility] V28) 025 CVID (common variable immuno deficiency) ([facility] V24, [facility] V28) 06/26/2021 Acute ITP ([facility] V24, [facility] V28) 06/26/2021 Encounters Date Type Department Care Team Description 09/04/2024 8:14 AM EDT - 09/04/2024 11:59 PM EDT Hospital Encounter [facility] [address] [place] [address] 2nd [place] [phone] Prosper Levy MD CVID (common variable immunodeficiency) ([facility] V24, [facility] V28) (Primary Dx) Discharge Disposition: Home or Self Care 08/26/2024 Telephone [facility] [address] [place] [phone] Diana Hensley RN hosptialized with Rhinovirus 08/14/2024 Telephone [facility] [place] [address] [place] [address] Manoj Rushing NP 07/30/2024 8:00 AM EDT - 07/30/2024 11:59 PM EDT Hospital Encounter [facility] [address] [place] [phone] Prosper Levy MD CVID (common variable immunodeficiency) ([facility] V24, [facility] V28) (Primary Dx) Discharge Disposition: Home or Self Care 07/02/2024 8:00 AM EDT - 07/02/2024 11:59 PM EDT Hospital Encounter [facility] [address] [place] [phone] Prosper Levy MD CVID (common variable immunodeficiency) ([facility] V24, [facility] V28) (Primary Dx) Discharge Disposition: Home or Self Care 06/15/2024 5:24 PM EDT - 06/27/2024 11:30 AM EDT Hospital Encounter [facility] [address] [place] [phone] Dea Paiz DO Primary insomnia (Primary Dx) Discharge Disposition: Home-Health Care Svc from Last 3 Months Social History Tobacco [...] Sign Reading Time Taken Comments Blood Pressure 106/70 09/04/2024 8:29 AM EDT Pulse 69 09/04/2024 8:29 AM EDT Temperature 36.7 C (98 F) 09/04/2024 8:29 AM EDT Respiratory Rate 18 09/04/2024 8:29 AM EDT Oxygen Saturation 100% 09/04/2024 8:29 AM EDT Inhaled Oxygen Concentration - - Weight 89.9 kg (198 lb 3.2 oz) 09/04/2024 8:29 A M EDT Height 179 cm (5' 10.47 ) 06/13/2024 11:13 AM ED T Body Mass Index 28.06 06/13/2024 11:13 AM EDT Plan of Treatment Upcoming Encounters Date Type Department Care Team (Late st Contact Info) Description 10/02/2024 8:00 AM EDT Appointment [facility] [address] [phone] 10/08/2024 9:15 AM EDT Office Visit [facility] H[facility] Oncology [address] [place] [phone] Prosper Levy MD [address] [place] [phone] 10/30/2024 8:00 AM EDT Appointment [facility] [address] [place] [address] 12/01/2024 2:30 PM EDT Office Visit [facility] Cardiology [facility] [address] [facility] [address] [place] [phone] Reji Dudley MD [address] [place] [address] [address] [place] [address] Health Maintenance Due Date Last Done Comments Zoster Vaccines (1 of 2) 05/05/2008 03/10/2008 Cholesterol Screening (Lipid Panel) 02/03/2022 Hepatitis C Screening 02/03/2022 Medicare Annual Wellness Visit 02/03/2022 COVID-19 Vaccine (9 - Pfizer risk season) 2024 11/08/2023, 05/01/2023, 11/17/2022, Additional history exists Influenza Vaccine (#1) 2024 , 12/08/2022, 12/09/2021, Additional history exists Hypertension/CHF/CAD Annual BMP Blood Test 06/26/2025 06/26/2024, 06/24/2024, 06/23/2024, Additional history exists Social Influencers of Health Screening 06/26/2025 06/26/2024 Falls Risk Assessment 07/30/2025 07/30/2024 DTaP,Tdap,and Td Vaccines (2 - Td or [...] 08/03/2008 RSV Immunization Adult Patients Completed 11/01/2022 Pneumococcal Vaccine: 50+ Years Completed 05/11/2024, 09/28/2022, 08/23/2016, Additional history exists Depression Screening Completed 06/26/2024 HPV Vaccines Aged Out No longer eligi [...] 11 :47 AM EDT ALANINE AMINOTRANSFERASE Routine 025 4:40 AM EDT ASPARTATE AMINOTRANSFERASE Routine 06/26/2024 4:40 AM EDT from Last 3 Months Results * (ABNORMAL) Creatinine serum (06/26/2024 11:47 AM EDT) Creatinine 0.56(L) 0.70 - 1.30 mg/dL LAB CHEMISTRY METHOD 06/26/2024 12:27 PM EDT [facility] eGFR 102 >=60 mL/min/1. 73m2 LAB CHEMISTRY METHOD 06/26/2024 12:27 PM EDT [facility] Comment:Calculation based on the Chronic Kidney Disease Epidemiology Collaboration (CKD-EPI) equation refit without adjustment for race. Blood Blood sample taken from central line / Unknown Venipuncture / Unknown 06/26/2024 11:47 AM EDT 06/26/2024 11:53 AM EDT us Dea Paiz DO LAB BLOOD ORDERABLES Gretchen l Result [facility] [address] [place] [address], [place] [phone] * Vancomycin, trough Please draw 30-60 minutes prior to vancomycin dose (06/26/2024 11:47 AM EDT) Vancomycin Trough 14.3 10.0 - 20.0 mcg/mL LAB CHEMISTRY METHOD 06/26/2024 12:27 PM EDT [facility] Blood Blood sample taken from central line / Unknown Venipuncture / Unknown 06/26/2024 11:47 AM EDT 06/26/2024 11:53 AM EDT Dea Paiz DO LAB BLOOD ORDERABLES Gretchen l Result Performing Organization Address City/[facility]/ZIP Co de Phone Number [facility] [address] [place] [address], [place] [phone] * Alanine aminotransferase (06/26/2024 4:40 AM EDT) [facility] ALT (SGPT) 60 10 - 60 unit/L LAB CHEMISTRY METHOD 06/26/2024 7:17 AM EDT [facility] Blood Blood sample taken from central line / Unknown Venipuncture / Unknown 06/26/2024 4:40 AM EDT 06/26/2024 6:02 AM EDT Kita PALMER LAB BLOOD ORDERABLES Final R esult [facility] [address] [place] [address], [place] [phone] * (ABNORMAL) Aspartate aminotransferase (06/26/2024 4:40 AM EDT) AST (SGOT) 52(H) 10 - 42 unit/L LAB CHEMISTRY METHOD 06/26/2024 7:17 AM EDT [facility] Blood Blood sample taken from central line / Unknown Venipuncture / Unknown 06/26/2024 4:40 AM EDT 06/26/2024 6:02 AM EDT us Kita PALMER LAB BLOOD ORDERABLES Final R esult [facility] [address] [place] [address], [place] [phone] from Last 3 Months Insurance [facility] [employer] [employer] - [place] MEDICARE ADVANTAGE Advance Directives Documents on File Type Date Recorded Patient Category Planner Expl anation Advance Directives and Living Will [...] Stock Spouse Health Care Agent Care Teams Hoseman Relationship Specialty Start Date End Date Chilo Orellana MD [address] [place] [address] PCP - General Internal Medicine 01/16/24
== END 2024-09-26 08:39 | disposition home or self-care (01) ==
LOC: HO.XRAY 08:38
PROVIDERS: PCP Internal Medicine; Visit Provider Hospitalist
DX: J90 Pleural effusion, not elsewhere classified (principal); J41.8 Mixed simple and mucopurulent chronic bronchitis; R91.8 Other nonspecific abnormal finding of lung field; D80.1 Nonfamilial hypogammaglobulinemia; D80.2 Selective deficiency of immunoglobulin A [IgA]
CPT/HCPCS: 71046

== ENCOUNTER → 2024-09-26 08:44 | Outpatient (BNV) | payer MEDICARE, SELFPAY | PROVIDERS: PCP Internal Medicine; Visit Provider Radiology Diagnostic Radiology | DX: J90 Pleural effusion, not elsewhere classified (principal) | CPT/HCPCS: 71046 ==

== ENCOUNTER 2024-09-26 09:05 | Outpatient (AMB) | payer BC, SELFPAY ==
--- NOTE | 2024-09-26 09:13 | MHC.OFFVIS ---
Vital Signs 09/26/24 09:14 Height 5 ft 10.5 in Weight 194 lb 0.108 oz BMI 27.4 BP 120/74 Blood Pressure Location Lt brachial Position Sitting Pulse 68 Pulse Source Pulse Oximeter Pulse Oximetry (%) 96 Oxygen Delivery Method Room Air Intake Visit Reasons: COPD Commercial Coordinator Required: No Accompanied by: Spouse Allergies No Known Allergies Allergy (Verified 09/26/24 09:18) HPI Comments Details: Sage is a pleasant 74 year old male, minimal smoker, with underlying history of thyroid cancer s/p total thyroidectomy and two doses of radiation 2001, hypogammaglobulinemia on IVIG (Dr. Cam Basurto), chronic sinusitis s/p sinus surgery 2012, s/p aortic valve replacement and aorta mesh graft placed 2014, receives annual echos under the care of [facility] cardiology. Referred by PCP initially for chronic bronchitis, as patient with persistent productive cough, unchanged over the past two months despite treatment, CXR negative. He was then sent for chest CT 08/16/22 at [facility] and revealed multiple pulmonary nodules as well as ground glass opacities. Full report below. Patient had continued symptoms, productive cough with thick yellow sputum and was treated with Augmentin, zpak and started on Trelegy this past Sunday. He also uses Flonase as well as saline rinses. He has had noticeable improvements in symptoms. He denies any chest tightness, wheezing or hemoptysis. At baseline patient is quite active and denies any dyspnea. Last PFT 2021, no restrictive or obstructive ventilatory defects. He denies any family history of lung cancer, father, smoker, had COPD.?? 10/24/2022 the patient is here for pulmonary follow-up visit. Overall the patient has been fairly anxious of his respiratory issues. He has been using Advair inhaler with good response. He did not respond well to Trelegy as well as other inhalers afterwards. She would like to stay on the Advair inhaler. Does not seem like the powder bothersome too much but I do believe that the Advair HFA will be a good option for him as able provide good the position of the medication and allows him to use a spacer. We did talk about is issues with chronic bronchitis. The patient is a good candidate for azithromycin 3 times a week in view of the chronic mucus production. The patient is agreeable to this. He just completed a course of doxycycline. In addition to this the patient can use a flutter valve to help him clear the mucus. I will request an Acapella valve from the [employer] to provide that he can use twice a day. He does not have a nebulizer at this point which is okay will consider adding a nebulizer any new future. The nebulizer will also provide additional chest physical therapy. Patient did have a CT scan of the chest that was personally by me. Appears that his nodular densities has significantly improved. He still has some hazy areas of ground-glass I inflammation. But otherwise the nodular densities have decreasing size. He still has small nodular densities present however. Will require additional followups in the future. Patient continues to receive IVIG by his his fire claims adjuster. His last level trough was 800 which is reassuring. Will continue the therapy at this point. He has been fully vaccinated. Will have him come back and 6-8 weeks with PFTs. 12/15/2022 the patient is here for pulmonary follow-up visit. Continues to have significant chest congestion. Moderate severity. The Advair inhaler does not seem to be as effective as the Wixela. He is going to go back to the Wixela at this time. The patient does have significant chest congestion. Will go ahead and provide with a nebulizer in order for him to use it twice a day with Xopenex. Also will request a Acapella valve from the [employer] in order for him to perform chest physical therapy and bronchopulmonary hygiene. Sputum culture once able. The patient will continue with the azithromycin for now. 3 times a week. Hopefully with the nebulizer therapy he notices improvement. We did review again his CT scan of the chest from September 2022 demonstrating areas of ground-glass opacities and also pulmonary nodules. If the patient continues to improve will follow-up with a CT scan in September of 2023. otherwise we can always consider reimaging at an earlier time if he does not make any improvements. 04/18/2023 The patient is here for a pulmonary follow up visit. He is doing better. Still has acongested cough, moderate in severity. He was able to produce a sample and sent for culture. Still on the IgG therapy, although IgA deficiency. Always a concern about severe allergic reactions. He does get the IVIG through [facility]. He did f/u with immunology. Bloodwork demonstrating minimal B cell activity. He will undergo genetic testing as per the patient. He continues to have significant nasal congestions and has continue the Afrin. He understands that it is not good for im to use it regularly due to the rebound nasal congestion. He will try to decrease the amount and tria ipratropium. He did have a CT chest back in 2022 with subcentemeter pulmonary nodules. We will follow up in the summer after his repeat CT chest. 09/28/2023 the patient is here for a pulmonary follow-up visit. Overall he is feeling a lot better. His cough is significantly improved. He was able to stop a lot of his medications because he feels better. The patient did have a resistant form of Haemophilus influenzae. He responded well to the quinolones. In the meantime he should continue with chest physical therapy to minimize mucus burden specially since there is a possibility that the organism a return. He has been able to be off the inhalers. Unfortunately still struggling with the Afrin. He is trying to decrease the amount of the medication. the inhalers that we all the nasal sprays that we prescribed a not help. He is going to continue working with ENT in order to see about weaning completely. The patient did have a CT scan of the chest which we personally reviewed. The ground-glass density area has improved which is reassuring. Although he does have his 1 cm ground-glass nodular density in the right upper lobe now that will need follow-up. No solid components within it. Although may be inflammatory still a chance that this could be a smoldering precancerous lesion. Therefore will plan to repeat a CT scan in a year's time. If the patient continues to do well follow-up after the CT scan. If he develops any worsening symptoms he will call for an earlier assessment. 07/28/2024 the patient is here for a pulmonary follow-up visit. The patient has had a very eventful few months. Initially was having issues with falls and was evaluated at [facility]. He had a CT scan of the chest back in May demonstrating what appeared to be diskitis and also osteomyelitis of the thoracic spine on the bottom. He was evaluated by Infectious Disease and placed on IV antibiotics. He completed about 6 weeks and then had reimaging still demonstrating the findings on the MRI and therefore he is in another therapy. In the meantime he had a chest x-ray done demonstrating a moderate-sized pleural effusion this was a [facility] on 07/23/2024. I did personally reviewed. Had him come in today for an appointment and he did have a repeat. Does have significant dullness to percussion about midway up and also has an x-ray done which I personally reviewed demonstrating the same findings. Will go ahead and request a diagnostic thoracentesis that this time specially because of the ongoing infection. Will send for blood work as well. He prefers to do it a [facility] were all his other doctors are located. I believe that is reasonable. Meantime will continue to take his antibiotics and will follow-up with the results. 09/26/2024 the patient is here for a pulmonary follow-up visit. Overall he is feeling better. He continues to work with physical therapy. He also completed all antibiotics for his vertebral body osteomyelitis. Sedimentation rates now normalizing addition to CRP. He did have a chest x-ray today that I personally reviewed with him. No evidence of any pleural effusions at all. His costophrenic angles that completely sharp. This is significantly improved from his last chest x-ray from early August. It is a very good sign that the inflammatory changes in the sequela from the inflammatory process that he had now starting to normalize. We did also look at his CT scan of the chest that he had back in 08/25/2024 demonstrating stable 5 mm pulmonary nodules. Will go ahead and plan to repeat a CAT scan a year from then. He will follow-up next year to review the results. If any issues arise from between now and then he will call. In the meantime he is going to continue working with physical therapy and working on deep breathing exercises. 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 Hypogammaglobulinemia Vitamin D deficiency Obesity Hyperlipemia Hypertension Hypothyroidism, acquired History of thyroid cancer Chronic bronchitis Surgical History (Updated 09/01/22 @ 09:11 by Lisandra Lopez PA-C) History of sinus surgery (~2012) History of cholecystectomy (~2009) History of thyroidectomy, total (~2001) History of endovascular stent graft for abdominal aortic aneurysm (AAA) (~2014) History of aortic valve replacement (~2014) Social History Patient Tobacco Use Status: Former Tobacco user Tobacco use type: Cigarette and Cigar Years Smoked: 7 Review of Systems Const Denies chills, Denies fever(s), Denies weight gain and Denies weight loss Eyes Denies dry eyes, Denies irritation and Denies itchy eyes ENT Denies Normal hearing present and Denies dizziness Card Denies chest pain, Denies leg edema, Denies lightheadedness, Denies palpitations, Reports dyspnea on exertion, Denies orthopnea and Denies other Resp Denies cough, Reports dyspnea on exertion and Denies wheezing GI Denies hematochezia and Denies change in stool character Musc Reports abnormal gait, Reports back pain, Reports arthralgias, Reports muscle weakness, Denies numbness, Denies radiating pain into limb and Denies tingling Neuro Denies Normal hearing present, Reports abnormal gait, Denies dizziness, Denies numbness and Denies tingling Psych Reports anxiety Endo Denies palpitations Samuel/Lymph Denies lymphadenopathy Aller/Immun Denies itchy eyes, Denies seasonal rhinorrhea and Denies wheezing Physical Exam Vital Signs: Last Vital Signs Pulse 68 09/26/24 09:14 BP 120/74 09/26/24 09:14 Pulse Ox 96 09/26/24 09:14 Oxygen Delivery Method Room Air 09/26/24 09:14 BMI result Body Mass Index 27.4 Const General: cooperative, healthy appearing, comfortable, no acute distress, well developed and alert Nutritional Appearance: obese Orientation/consciousness: patient oriented x3 Limitations: no limitations HEENT Head: Yes normal to inspection, Yes normocephalic and Yes atraumatic Ears: hearing grossly normal bilaterally and external ears normal Eyes General: appearance normal, both eyes and all related structures Eyelids: Yes eyelids normal Sclerae: sclerae normal EOM: EOMs intact bilaterally Neck Neck: Yes normal visual inspection and Yes no lymphadenopathy Chest Chest palpation & inspection: normal inspection of the chest Resp Effort & Inspection: normal respiratory effort, able to speak in complete sentences, no audible wheezes, no cough, no stridor, not tachypneic, no tripod positioning and no use of accessory muscles Auscultation: clear to auscultation bilaterally Cardio Jugular venous distension: no JVD Rate: regular rate Rhythm: regular rhythm Skin Other: warm, dry General skin exam: no rashes or lesions noted Neuro General: patient oriented x3 Cranial nerves: No Normal hearing present Cognition (Neuro): normal cognition Gait exam (Neuro): Normal gait present Extrem General: Yes normal to inspection, Yes capillary refill normal, Yes no clubbing, cyanosis or edema and Yes no pedal edema Psych Appearance: grossly normal and well kempt Speech and movement: Normal speech and movement present and Clear speech present Affect: normal affect Attitude: cooperative Thought process: Normal thought process present Thought content: Normal thought content present Insight: Good insight present (Psych) Judgement: Good judgement present (Psych) Assessment & Plan Assessment & Plan (1) COPD (chronic obstructive pulmonary disease): Code(s): J44.9 - Chronic obstructive pulmonary disease, unspecified Category: Medical Qualifiers: COPD type: chronic bronchitis Chronic bronchitis type: mixed simple and mucopurulent Qualified Code(s): J41.8 - Mixed simple and mucopurulent chronic bronchitis (2) Ground glass opacity present on imaging of lung: Code(s): R91.8 - Other nonspecific abnormal finding of lung field Category: Medical (3) Chronic bronchitis: Code(s): J42 - Unspecified chronic bronchitis Category: Medical Qualifiers: Chronic bronchitis type: mixed simple and mucopurulent Qualified Code(s): J41.8 - Mixed simple and mucopurulent chronic bronchitis (4) Hypogammaglobulinemia: Comment: (on IVIG -Dr. Cam Basurto) Code(s): D80.1 - Nonfamilial hypogammaglobulinemia Category: Medical (5) Multiple pulmonary nodules: Code(s): R91.8 - Other nonspecific abnormal finding of lung field Category: Medical (6) IgM deficiency: Code(s): D80.4 - Selective deficiency of immunoglobulin M [IgM] Category: Medical (7) IgA deficiency: Code(s): D80.2 - Selective deficiency of immunoglobulin A [IgA] Category: Medical (8) Pleural effusion: Comment: resolved based on 09/26 CXR Code(s): J90 - Pleural effusion, not elsewhere classified Category: Medical Plan DON as needed nebulizer BID with xopenex CT chest done 08/2025 IVIG at [facility] ISS F/U 1 yr Orders: Orders CT chest wo IV con 08/26/25 R91.8 - Other nonspecific abnormal finding of lung field Coding Level of Care Code Est Pt Level 4 (19624) Complex EM visit Add On G2211 Diagnoses Mixed simple and mucopurulent chronic bronchitis J41.8 COPD type: chronic bronchitis Chronic bronchitis type: mixed simple and mucopurulent Ground glass opacity present on imaging of lung R91.8 Mixed simple and mucopurulent chronic bronchitis J41.8 Chronic bronchitis type: mixed simple and mucopurulent Hypogammaglobulinemia D80.1 Multiple pulmonary nodules R91.8 IgM deficiency D80.4 IgA deficiency D80.2 Pleural effusion J90 Time Spent (min) 18
[2024-09-26 09:14] VITALS: BP 120/74; PULSE 68; O2SAT 96; BMI 27.4
== END 2024-09-26 11:23 | disposition home or self-care (01) ==
LOC: HO.HPS 09:06
PROVIDERS: PCP Internal Medicine; Visit Provider Hospitalist
DX: J41.8 Mixed simple and mucopurulent chronic bronchitis (principal); R91.8 Other nonspecific abnormal finding of lung field; D80.1 Nonfamilial hypogammaglobulinemia; D80.4 Selective deficiency of immunoglobulin M [IgM]; D80.2 Selective deficiency of immunoglobulin A [IgA]; J90 Pleural effusion, not elsewhere classified
CPT/HCPCS: 99214